=== PATIENT | female | born 1945 | race Caucasian/White ===

== ENCOUNTER → 2016-06-18 | Outpatient (REF) | payer MEDICARE, MEDICAID | LOC: M LAB REF 17:00 | PROVIDERS: ATTEND Internal Medicine Nephrology | DX: N39.0 Urinary tract infection, site not specified (principal) ==

== ENCOUNTER → 2016-06-27 | Outpatient (CLI) | payer MEDICARE ==
--- NOTE | 2016-06-27 12:06 | REP ---
Clinical: Chronic renal disease. Technique: Real time king scale ultrasound examination using curved array transducer. Findings: The kidneys are normal in reniform shape and demonstrate cortical thinning along with increased medullary sinus fat. Renovascular calcifications are identified. No hydronephrosis, nephrolithiasis, cystic or mass lesion identified. No perinephric fluid collection noted. Right kidney measures 10.0 x 4.7 x 5.0 cm. Left kidney measures 10.7 x 5.7 x 5.6 cm. Bladder is incompletely evaluated and grossly unremarkable as visualized. Impression: Findings consistent with chronic medical renal disease. No hydronephrosis. Signed by Yosef Laguna MD 06/27/2016 11:58 A
== END ==
LOC: M RAD 10:54
PROVIDERS: ATTEND Internal Medicine Nephrology
DX: N18.4 Chronic kidney disease, stage 4 (severe) (principal)

== ENCOUNTER → 2016-11-21 | Outpatient (CLI) | payer MEDICARE ==
--- NOTE | 2016-11-21 14:08 | REPMRS ---
Patient History The patient states she had a clinical breast exam in October 2016.Patient is postmenopausal and is nulliparous. Family history of unknown cancer in father at age 50 or over and breast cancer in maternal aunt at age 63. Digital Mammo Screening Bilat: November 21, 2016 - Exam #: [id number] Bilateral CC and MLO view(s) were taken. Technologist: Sarah Ignacio, Technologist Prior study comparison: November 22, 2015, bilateral digital mammo screening bilat performed at [facility]. October 26, 2014, digital bilateral screening mammo, performed at [facility]. FINDINGS: There are scattered fibroglandular densities. There has been no change in the appearance of the mammogram from the prior studies. There is a mild amount of residual fibroglandular tissue which is fairly symmetric. There is no interval development of dominant mass, architectural distortion, or clustered microcalcification suggestive of malignancy. ASSESSMENT: BI-RADS/ACR category 1 mammogram. Negative. Recommendation Routine screening mammogram in 1 year (for women over age 40). This mammogram was interpreted with the aid of an FDA-approved computer-aided dectection system. Electronically Signed By: Jose Angel Yap MD 11/21/16 1920
== END ==
LOC: M RAD 12:44
PROVIDERS: ATTEND Nurse Practitioner Adult Health
DX: Z12.31 Encounter for screening mammogram for malignant neoplasm of breast (principal); Z78.0 Asymptomatic menopausal state

== ENCOUNTER → 2017-02-07 | Outpatient (CLI) | payer MEDICARE ==
[2017-02-07 13:39] LABS: FREE T4 1.14 NG/DL (0.76-1.46)
== END ==
LOC: M LAB 11:46
PROVIDERS: ATTEND Nurse Practitioner Adult Health
DX: E11.8 Type 2 diabetes mellitus with unspecified complications (principal)

== ENCOUNTER → 2017-05-23 | Outpatient (CLI) | payer MEDICARE, MEDICAID ==
[2017-05-23 10:48] LABS: BASO # 0.1 10^3/uL (0.0-0.2); EOS # 0.2 10^3/uL (0.0-0.50); EOS % 2.6 % (0.0-3.0); HEMATOCRIT 38.9 % (36.0-47.0); HEMOGLOBIN 12.5 g/dl (12.0-16.0); IMMATURE GRANULOCYTE % 0.2 % (0-0); LYMPH # 3.1 10^3/uL (1.5-4.5); LYMPH % 36.9 % (24.0-44.0); MEAN CORPUSCULAR HEMOGLOBIN 29.1 pg (27.0-33.0); MEAN CORPUSCULAR HGB CONC 32.1 g/dl (32.0-36.5); MEAN CORPUSCULAR VOLUME 90.5 fl (80.0-96.0); MONO # 0.6 10^3/uL (0.0-0.8); MONO % 7.4 % (0.0-5.0); NEUTROPHILS # 4.3 10^3/uL (1.8-7.7); NEUTROPHILS % 51.9 % (36.0-66.0); PLATELET COUNT, AUTOMATED 220 10^3/uL (150-450); RED CELL DISTRIBUTION WIDTH 12.8 % (11.5-14.5); WHITE BLOOD COUNT 8.4 10^3/uL (4.0-10.0)
[2017-05-23 11:02] LABS: ESTIMATED AVERAGE GLUCOSE 146 MG/DL (60-110); HEMOGLOBIN A1c 6.7 %
[2017-05-23 11:25] LABS: ALBUMIN 3.7 GM/DL (3.2-5.2); ALBUMIN/GLOBULIN RATIO 1.19 (1.00-1.93); ALKALINE PHOSPHATASE 111 U/L (45-117); ALT/SGPT 30 U/L (12-78); ANION GAP 5 MEQ/L (8-16); AST/SGOT 23 U/L (7-37); BILIRUBIN,TOTAL 0.3 MG/DL (0.2-1.0); BLOOD UREA NITROGEN 27 MG/DL (7-18); CALCIUM LEVEL 9.2 MG/DL (8.8-10.2); CARBON DIOXIDE LEVEL 31 MEQ/L (21-32); CHLORIDE LEVEL 105 MEQ/L (98-107); CHOLESTEROL LEVEL 191 MG/DL (<200); CHOLESTEROL RISK RATIO 2.893 (<5); GLOMERULAR FILTRATION RATE 47.3 (>39); GLUCOSE, FASTING 79 MG/DL (83-110); HDL CHOLESTEROL 66 MG/DL (>40); LDL CHOLESTEROL 92.8 MG/DL (<100); NON-HDL-C 125 MG/DL; POTASSIUM SERUM 4.1 MEQ/L (3.5-5.1); SODIUM LEVEL 141 MEQ/L (136-145); TOTAL PROTEIN 6.8 GM/DL (6.4-8.2); TRIGLYCERIDES LEVEL 161 MG/DL (<150)
[2017-05-23 16:50] LABS: TOTAL 25(OH) VITAMIN D 95.1 NG/ML (30.0-100.0)
== END ==
LOC: M LAB 10:14
DX: E55.9 Vitamin D deficiency, unspecified (principal); E11.8 Type 2 diabetes mellitus with unspecified complications; E03.9 Hypothyroidism, unspecified; N18.2 Chronic kidney disease, stage 2 (mild); Z79.899 Other long term (current) drug therapy
CPT/HCPCS: 84443

== ENCOUNTER → 2017-08-21 | Outpatient (REF) | payer MEDICARE, MEDICAID ==
[2017-08-21 14:24] LABS: ESTIMATED AVERAGE GLUCOSE 143 MG/DL (60-110); HEMOGLOBIN A1c 6.6 %
[2017-08-21 14:26] LABS: VITAMIN B12 LEVEL 562 PG/ML
[2017-08-21 14:27] LABS: FOLATE > 24.0 NG/ML
[2017-08-21 14:32] LABS: FERRITIN 21 NG/ML (8-252); FREE T4 1.18 NG/DL (0.76-1.46); IRON (FE) 63 UG/DL (50-170); PERCENT SATURATION 16.6 % (13.2-45.0); RHEUMATOID FACTOR QUANT < 10.0 IU/ML (<15.0); TOTAL IRON BINDING CAPACITY 379 UG/DL (250-450)
[2017-08-21 14:42] LABS: ERYTHROCYTE SEDIMENTATION RATE 20 mm/hr (0-30)
[2017-08-24 14:56] LABS: VITAMIN B1 LEVEL WHOLE BLOOD 139.8 nmol/L (66.5-200.0); VITAMIN B6,PYRIDOXAL PHOSPHATE 17.2 ug/L (2.0-32.8)
[2017-08-26 14:13] LABS: ANTINUCLEAR ANTIBODIES DIRECT Negative (Negative); VITAMIN E(ALPHA TOCOPHEROL) 10.4 mg/L (9.0-29.0); VITAMIN E(GAMMA TOCOPHEROL) 2.1 mg/L (0.5-4.9)
== END ==
LOC: M LABNEURO 11:32
DX: G25.81 Restless legs syndrome (principal); R20.9 Unspecified disturbances of skin sensation; D64.9 Anemia, unspecified
CPT/HCPCS: 82746

== ENCOUNTER → 2017-12-26 | Outpatient (CLI) | payer MEDICARE, MEDICAID | LOC: M RAD 13:13 | DX: Z12.31 Encounter for screening mammogram for malignant neoplasm of breast (principal) | CPT/HCPCS: 77067 ==

== ENCOUNTER → 2018-03-05 | Outpatient (CLI) | payer MEDICARE, MEDICAID ==
[2018-03-05 15:53] LABS: BASO # 0.1 10^3/uL (0.0-0.2); BASO % 1.1 % (0.0-1.0); EOS # 0.1 10^3/uL (0.0-0.50); EOS % 1.8 % (0.0-3.0); HEMATOCRIT 40.6 % (36.0-47.0); HEMOGLOBIN 13.1 g/dl (12.0-15.5); IMMATURE GRANULOCYTE % 0.4 % (0-3.0); LYMPH # 2.2 10^3/uL (1.5-4.5); LYMPH % 27.7 % (24.0-44.0); MEAN CORPUSCULAR HEMOGLOBIN 29.8 pg (27.0-33.0); MEAN CORPUSCULAR HGB CONC 32.3 g/dl (32.0-36.5); MEAN CORPUSCULAR VOLUME 92.3 fl (80.0-96.0); MONO # 0.5 10^3/uL (0.0-0.8); MONO % 6.5 % (0.0-5.0); NEUTROPHILS # 4.9 10^3/uL (1.8-7.7); NEUTROPHILS % 62.5 % (36.0-66.0); PLATELET COUNT, AUTOMATED 223 10^3/uL (150-450); RED CELL DISTRIBUTION WIDTH 12.9 % (11.5-14.5); WHITE BLOOD COUNT 7.8 10^3/uL (4.0-10.0)
[2018-03-05 16:39] LABS: ALBUMIN 3.5 GM/DL (3.2-5.2); ALBUMIN/GLOBULIN RATIO 1.03 (1.00-1.93); ALKALINE PHOSPHATASE 108 U/L (45-117); ALT/SGPT 29 U/L (12-78); ANION GAP 10 MEQ/L (8-16); AST/SGOT 21 U/L (7-37); BILIRUBIN,TOTAL 0.3 MG/DL (0.2-1.0); BLOOD UREA NITROGEN 25 MG/DL (7-18); CARBON DIOXIDE LEVEL 28 MEQ/L (21-32); CHLORIDE LEVEL 105 MEQ/L (98-107); CHOLESTEROL LEVEL 193 MG/DL (<200); CHOLESTEROL RISK RATIO 2.969 (<5); CREATININE FOR GFR 1.32 MG/DL (0.55-1.30); GLOMERULAR FILTRATION RATE 42.4 (>39); GLUCOSE, FASTING 126 MG/DL (70-100); HDL CHOLESTEROL 65 MG/DL (>40); LDL CHOLESTEROL 116 MG/DL (<100); NON-HDL-C 128 MG/DL; POTASSIUM SERUM 4.4 MEQ/L (3.5-5.1); SODIUM LEVEL 143 MEQ/L (136-145); TOTAL PROTEIN 6.9 GM/DL (6.4-8.2); TRIGLYCERIDES LEVEL 62 MG/DL (<150)
[2018-03-05 16:45] LABS: ESTIMATED AVERAGE GLUCOSE 140 MG/DL (60-110); HEMOGLOBIN A1c 6.5 %
== END ==
LOC: M WHC 14:28
DX: E78.2 Mixed hyperlipidemia (principal); R53.83 Other fatigue; E11.9 Type 2 diabetes mellitus without complications; N18.9 Chronic kidney disease, unspecified; I12.9 Hypertensive chronic kidney disease with stage 1 through stage 4 chronic kidney disease, or unspecified chronic kidney disease; E03.9 Hypothyroidism, unspecified; Z13.9 Encounter for screening, unspecified; Z78.0 Asymptomatic menopausal state
CPT/HCPCS: 84443

== ENCOUNTER 2018-06-16 07:52 | Day surgery (SDC) | payer MEDICARE, MEDICAID ==
[~2018-06-16] VITALS: Ht 152.4 cm; Wt 98.0 kg
[~2018-06-16 07:52] MED LIST: ACETAMINOPHEN 325 MG TAB PO PRN; ASPI1TAB PO; ATOR40TA75 PO; BSS with VANC/TOB/EPI for EYE CASES IR ONE; BUSP15TA47 PO; COQ-100C2 PO; CYCLOPENTOLATE 2% OPHTH SOLN 2ML BTL OS ONE; GABA-845 PO; GLIP5TAB20 PO; HEALON DUET PRO(HEALON 10MG/ML 0.55ML & HEALON ENDOCOAT 30MG/ML 0.85ML) As Ordered ONE; JANU100T PO; LEVO100T5 PO; LIDOCAINE 1% SDV 5 ML VIAL As Ordered ONE; LIDOCAINE 3.5 % 1ML OPHTH TOPICAL GEL OU ONE; MOXIFLOXACIN IN BSS 0.25MG/0.25ML INTRACAMERAL INJ (OR EYE ONLY)(J2280) As Ordered ONE; MULT1TAB10 PO; OFLOXACIN 0.3 % (OCUFLOX) OPTH SOL 5ML OS ONE; PHENYLEPHRINE 2.5% OPHTH SOL 2ML OS ONE; PHENYLEPHRINE HCL 10 % OPHTH. SOL 5ML OS PRN; POVIDONE-IODINE 5% OPHTH PREP SOL 30ML As Ordered ONE; TRAZ10TA PO; TRIAMCINOLONE PRES FR 40 MG/ML 1ML(TRIESENCE)(OR EYE ONLY)(J3300 PER 1MG) As Ordered ONE; TROPICAMIDE 1% OPHTH SOLN 2ML OS ONE; XANA0.25 PO
[2018-06-16] MEDS ORDERED: fentaNYL 100 MCG/2 ML INJECTION (J3010) As Ordered ONE (08:39)
[2018-06-16] MEDS ORDERED: MIDAZOLAM INJ 2 MG/2 ML VIAL (J2250) As Ordered ONE (08:39)
[2018-06-16] MEDS ORDERED: ACETYLCHOLINE OPHTH SOLN 1% 2ML (MIOCHOL-E) As Ordered ONE (10:13)
[2018-06-16 10:25] VITALS: BP 111/63
[2018-06-16] MEDS ORDERED: AcetaZOLAMIDE 500 MG ER CAP As Ordered ONE (10:45)
[2018-06-16] MEDS ORDERED: AcetaZOLAMIDE 500 MG ER CAP PO ONE (11:00)
[2018-06-16] MEDS ORDERED: TRIMETHOBENZAMIDE 300 MG CAP PO PRN (11:00)
[2018-06-16] MEDS ORDERED: PERCOCET 5MG/325MG TAB PO PRN (11:00)
[2018-06-16] MEDS ORDERED: fentaNYL 100 MCG/2 ML INJECTION (J3010) IV PRN (11:00)
== END 2018-06-16 11:20 | disposition home or self-care (01) ==
LOC: M SDC 07:52
PROVIDERS: ATTEND Ophthalmology
DX: H25.9 Unspecified age-related cataract (principal); E11.9 Type 2 diabetes mellitus without complications; E78.5 Hyperlipidemia, unspecified; E03.9 Hypothyroidism, unspecified; F41.9 Anxiety disorder, unspecified; Z88.0 Allergy status to penicillin; Z79.82 Long term (current) use of aspirin; Z79.84 Long term (current) use of oral hypoglycemic drugs; Z79.899 Other long term (current) drug therapy
CPT/HCPCS: 66984; 92015; J2250; J2280; J3010; J3300; V2632

== ENCOUNTER → 2018-06-24 | Outpatient (CLI) | payer OTHER ==
[~2018-06-24] MED LIST changes: -ACETAMINOPHEN 325 MG TAB PO PRN; -BSS with VANC/TOB/EPI for EYE CASES IR ONE; -CYCLOPENTOLATE 2% OPHTH SOLN 2ML BTL OS ONE; -HEALON DUET PRO(HEALON 10MG/ML 0.55ML & HEALON ENDOCOAT 30MG/ML 0.85ML) As Ordered ONE; -LIDOCAINE 1% SDV 5 ML VIAL As Ordered ONE; -LIDOCAINE 3.5 % 1ML OPHTH TOPICAL GEL OU ONE; -MOXIFLOXACIN IN BSS 0.25MG/0.25ML INTRACAMERAL INJ (OR EYE ONLY)(J2280) As Ordered ONE; -OFLOXACIN 0.3 % (OCUFLOX) OPTH SOL 5ML OS ONE; -PHENYLEPHRINE 2.5% OPHTH SOL 2ML OS ONE; -PHENYLEPHRINE HCL 10 % OPHTH. SOL 5ML OS PRN; -POVIDONE-IODINE 5% OPHTH PREP SOL 30ML As Ordered ONE; -TRIAMCINOLONE PRES FR 40 MG/ML 1ML(TRIESENCE)(OR EYE ONLY)(J3300 PER 1MG) As Ordered ONE; -TROPICAMIDE 1% OPHTH SOLN 2ML OS ONE
[2018-06-24 11:29] LABS: BASO # 0.1 10^3/uL (0.0-0.2); BASO % 0.8 % (0.0-1.0); EOS # 0.2 10^3/uL (0.0-0.50); EOS % 2.4 % (0.0-3.0); HEMATOCRIT 40.4 % (36.0-47.0); HEMOGLOBIN 13.4 g/dl (12.0-15.5); LYMPH # 3.3 10^3/uL (1.5-4.5); LYMPH % 37.9 % (24.0-44.0); MEAN CORPUSCULAR HEMOGLOBIN 30.3 pg (27.0-33.0); MEAN CORPUSCULAR HGB CONC 33.2 g/dl (32.0-36.5); MEAN CORPUSCULAR VOLUME 91.4 fl (80.0-96.0); MONO # 0.6 10^3/uL (0.0-0.8); MONO % 6.4 % (0.0-5.0); NEUTROPHILS # 4.5 10^3/uL (1.8-7.7); NEUTROPHILS % 52.3 % (36.0-66.0); PLATELET COUNT, AUTOMATED 219 10^3/uL (150-450); RED BLOOD COUNT 4.42 10^6/uL (4.00-5.40); WHITE BLOOD COUNT 8.7 10^3/uL (4.0-10.0)
[2018-06-24 12:17] LABS: ALBUMIN 3.8 GM/DL (3.2-5.2); BILIRUBIN,TOTAL 0.3 MG/DL (0.2-1.0); CALCIUM LEVEL 9.2 MG/DL (8.8-10.2); CHOLESTEROL RISK RATIO 3.272 (<5); CREATININE FOR GFR 1.22 MG/DL (0.55-1.30); FREE T4 1.11 NG/DL (0.76-1.46); GLOMERULAR FILTRATION RATE 46.3 (>39); POTASSIUM SERUM 4.5 MEQ/L (3.5-5.1); THYROID STIMULATING HORMONE 5.13 uIU/ML (0.358-3.740); TOTAL 25(OH) VITAMIN D 45.5 NG/ML (30.0-100.0)
[2018-06-24 13:59] LABS: HEMOGLOBIN A1c 7.4 %
== END ==
LOC: M LAB 10:27
PROVIDERS: ATTEND Physician Assistant Medical
DX: E78.2 Mixed hyperlipidemia (principal); I10 Essential (primary) hypertension; E55.9 Vitamin D deficiency, unspecified

== ENCOUNTER 2018-07-06 06:56 | Day surgery (SDC) | payer MEDICARE, MEDICAID ==
[~2018-07-06] VITALS: Ht 162.6 cm; Wt 95.6 kg
[~2018-07-06 06:56] MED LIST changes: +ACETAMINOPHEN 325 MG TAB PO PRN; +HEALON DUET PRO(HEALON 10MG/ML 0.55ML & HEALON ENDOCOAT 30MG/ML 0.85ML) As Ordered ONE; +LIDOCAINE 1% SDV 5 ML VIAL As Ordered ONE; +MOXIFLOXACIN IN BSS 0.25MG/0.25ML INTRACAMERAL INJ (OR EYE ONLY)(J2280) As Ordered ONE; +POVIDONE-IODINE 5% OPHTH PREP SOL 30ML As Ordered ONE; +TRIAMCINOLONE PRES FR 40 MG/ML 1ML(TRIESENCE)(OR EYE ONLY)(J3300 PER 1MG) As Ordered ONE
[2018-07-06] MEDS ORDERED: CYCLOPENTOLATE 2% OPHTH SOLN 2ML BTL OD ONE (07:00)
[2018-07-06] MEDS ORDERED: LIDOCAINE 3.5 % 1ML OPHTH TOPICAL GEL OU ONE (07:00)
[2018-07-06] MEDS ORDERED: PHENYLEPHRINE HCL 10 % OPHTH. SOL 5ML OD PRN (07:00)
[2018-07-06] MEDS ORDERED: OFLOXACIN 0.3 % (OCUFLOX) OPTH SOL 5ML OD ONE (07:00)
[2018-07-06] MEDS ORDERED: PHENYLEPHRINE 2.5% OPHTH SOL 2ML OD ONE (07:00)
[2018-07-06] MEDS ORDERED: BSS with VANC/TOB/EPI for EYE CASES IR ONE (07:00)
[2018-07-06] MEDS ORDERED: TROPICAMIDE 1% OPHTH SOLN 2ML OD ONE (07:00)
[2018-07-06] MEDS ORDERED: ACETYLCHOLINE OPHTH SOLN 1% 2ML (MIOCHOL-E) As Ordered ONE (08:02)
[2018-07-06] MEDS ORDERED: LIDOCAINE 2% W/EPIN INJ 20ML **PRES FREE As Ordered ONE (08:03)
[2018-07-06] MEDS ORDERED: MIDAZOLAM INJ 2 MG/2 ML VIAL (J2250) As Ordered ONE (09:16)
[2018-07-06] MEDS ORDERED: fentaNYL 100 MCG/2 ML INJECTION (J3010) As Ordered ONE (09:16)
[2018-07-06] MEDS ORDERED: TRIMETHOBENZAMIDE 300 MG CAP PO PRN (10:00)
[2018-07-06] MEDS ORDERED: AcetaZOLAMIDE 500 MG ER CAP PO ONE (10:00)
[2018-07-06 10:10] VITALS: BP 115/60
== END 2018-07-06 10:15 | disposition home or self-care (01) ==
LOC: M SDC 06:56
PROVIDERS: ATTEND Ophthalmology
DX: H26.9 Unspecified cataract (principal); E11.9 Type 2 diabetes mellitus without complications; E78.5 Hyperlipidemia, unspecified; E03.9 Hypothyroidism, unspecified; F41.9 Anxiety disorder, unspecified; G47.30 Sleep apnea, unspecified; Z79.82 Long term (current) use of aspirin; Z79.899 Other long term (current) drug therapy
CPT/HCPCS: 66984; 92015; J2250; J2280; J3010; J3300; V2632

== ENCOUNTER → 2018-10-07 | Outpatient (CLI) | payer MEDICARE, MEDICAID ==
[~2018-10-07] MED LIST changes: -ACETAMINOPHEN 325 MG TAB PO PRN; -ASPI1TAB PO; +ASPI81TA26 PO; -HEALON DUET PRO(HEALON 10MG/ML 0.55ML & HEALON ENDOCOAT 30MG/ML 0.85ML) As Ordered ONE; -LIDOCAINE 1% SDV 5 ML VIAL As Ordered ONE; -MOXIFLOXACIN IN BSS 0.25MG/0.25ML INTRACAMERAL INJ (OR EYE ONLY)(J2280) As Ordered ONE; -POVIDONE-IODINE 5% OPHTH PREP SOL 30ML As Ordered ONE; -TRIAMCINOLONE PRES FR 40 MG/ML 1ML(TRIESENCE)(OR EYE ONLY)(J3300 PER 1MG) As Ordered ONE
[2018-10-07 13:06] LABS: BASO # 0.1 10^3/uL (0.0-0.2); BASO % 0.9 % (0.0-1.0); EOS # 0.2 10^3/uL (0.0-0.50); EOS % 2.1 % (0.0-3.0); HEMATOCRIT 41.6 % (36.0-47.0); HEMOGLOBIN 13.3 g/dl (12.0-15.5); LYMPH # 3.2 10^3/uL (1.5-4.5); LYMPH % 37.7 % (24.0-44.0); MEAN CORPUSCULAR HEMOGLOBIN 29.8 pg (27.0-33.0); MEAN CORPUSCULAR VOLUME 93.3 fl (80.0-96.0); MONO # 0.6 10^3/uL (0.0-0.8); MONO % 7.2 % (0.0-5.0); NEUTROPHILS # 4.4 10^3/uL (1.8-7.7); NEUTROPHILS % 51.7 % (36.0-66.0); PLATELET COUNT, AUTOMATED 217 10^3/uL (150-450); RED BLOOD COUNT 4.46 10^6/uL (4.00-5.40); WHITE BLOOD COUNT 8.4 10^3/uL (4.0-10.0)
[2018-10-07 13:17] LABS: ALBUMIN 3.7 GM/DL (3.2-5.2); BILIRUBIN,TOTAL 0.5 MG/DL (0.2-1.0); CALCIUM LEVEL 9.8 MG/DL (8.8-10.2); CREATININE FOR GFR 1.3 MG/DL (0.55-1.30); FREE T4 1.29 NG/DL (0.76-1.46); POTASSIUM SERUM 5.1 MEQ/L (3.5-5.1); THYROID STIMULATING HORMONE 1.24 uIU/ML (0.358-3.740); TOTAL PROTEIN 6.9 GM/DL (6.4-8.2)
[2018-10-07 13:49] LABS: HEMOGLOBIN A1c 7.6 %
== END ==
LOC: M WUC 08:31
PROVIDERS: ATTEND Physician Assistant Medical
DX: R53.83 Other fatigue (principal); Z79.899 Other long term (current) drug therapy

== ENCOUNTER → 2018-12-08 | Outpatient (REF) | payer MEDICARE, MEDICAID | LOC: M SFHCWAGY 15:01 | PROVIDERS: ATTEND Nurse Practitioner Family | DX: Z12.4 Encounter for screening for malignant neoplasm of cervix (principal); N95.8 Other specified menopausal and perimenopausal disorders ==

== ENCOUNTER → 2018-12-08 | Outpatient (CLI) | payer MEDICARE, MEDICAID ==
--- NOTE | 2018-12-08 15:56 | REPMRS ---
Patient History The patient states she had a clinical breast exam in 11/2018. Patient is postmenopausal and is nulliparous. Family history of prostate cancer at age 50 or over in father, breast cancer at age 63 in maternal aunt. No Hormone Replacement Therapy Digital Woman Screen Mammo: December 08, 2018 - Exam #: [id number] Bilateral CC and MLO view(s) were taken. Technologist: Nuvia Kate, Technologist Prior study comparison: December 26, 2017, bilateral digital mammo screening bilat, performed at [facility]. November 21, 2016, bilateral digital mammo screening bilat, performed at [facility]. November 22, 2015, bilateral digital mammo screening bilat, performed at [facility]. FINDINGS: There are scattered fibroglandular densities. A metallic needle biopsy marker clip is again noted in the upper outer quadrant on the left. There has been no change in the appearance of the mammogram from the prior studies. There is a mild amount of scattered fibroglandular density which is fairly symmetric. There is no interval development of dominant mass, architectural distortion, or grouped microcalcification suggestive of malignancy. 3-D tomosynthesis shows no additional findings. Assessment: BI-RADS/ACR category 2 mammogram. Benign Findings. Recommendation Routine screening mammogram of both breasts in 1 year (for women over age 40). This patient's Lifetime Breast Cancer Risk is estimated at 8.1 %. This mammogram was interpreted with the aid of an FDA-approved computer-aided dectection system. Electronically Signed By: Michele Stewart MD 12/08/18 3022
== END ==
LOC: M WHC 14:26
PROVIDERS: ATTEND Nurse Practitioner Family
DX: Z01.419 Encounter for gynecological examination (general) (routine) without abnormal findings (principal); Z12.31 Encounter for screening mammogram for malignant neoplasm of breast; Z78.0 Asymptomatic menopausal state; Z80.42 Family history of malignant neoplasm of prostate
CPT/HCPCS: 77063; 77067; G0101; G0123

== ENCOUNTER → 2018-12-21 | Outpatient (CLI) | payer MEDICARE, MEDICAID ==
--- NOTE | 2018-12-21 14:08 | REP ---
PELVIC SONOGRAPHY: HISTORY: Mass in the uterus. No comparison imaging available. The patient reports an MRI of the hips at another facility showed uterine mass. FINDINGS: Transabdominal and endovaginal scanning are performed. Uterine dimensions of 5.1 x 4.2 x 6.0 cm. Endometrial echo 0.4 cm thick. There is a hypoechoic lesion in the anterior aspect of the lower uterine segment consistent with a fibroid. This measures 4.0 x 2.7 x 3.4 cm. Visualized bladder buckley are smooth. Normal ovaries are seen bilaterally. Right ovary dimensions are 1.9 x 1.0 x 1.7 cm. The left ovary measures 1.90 0.8 x 2.0 cm. IMPRESSION: 4.0 cm lower uterine segment fibroid. Otherwise negative pelvic sonography.
== END ==
LOC: M WHC 10:05
PROVIDERS: ATTEND Nurse Practitioner Family
DX: D25.9 Leiomyoma of uterus, unspecified (principal)

== ENCOUNTER → 2019-01-22 | Outpatient (REF) | payer MEDICARE, MEDICAID ==
[2019-01-22 15:58] LABS: BASO # 0.1 10^3/uL (0.0-0.2); BASO % 0.9 % (0.0-1.0); EOS # 0.2 10^3/uL (0.0-0.5); HEMATOCRIT 40.2 % (36.0-47.0); LYMPH # 3.4 10^3/uL (1.5-5.0); LYMPH % 39.4 % (24.0-44.0); MEAN CORPUSCULAR HGB CONC 32.3 g/dl (32.0-36.5); MEAN CORPUSCULAR VOLUME 89.7 fl (80.0-96.0); MONO # 0.7 10^3/uL (0.0-0.8); MONO % 7.8 % (0.0-5.0); NEUTROPHILS # 4.2 10^3/uL (1.5-8.5); NEUTROPHILS % 49.7 % (36.0-66.0); PLATELET COUNT, AUTOMATED 202 10^3/uL (150-450); RED BLOOD COUNT 4.48 10^6/uL (4.00-5.40); WHITE BLOOD COUNT 8.5 10^3/uL (4.0-10.0)
[2019-01-22 16:18] LABS: HEMOGLOBIN A1c 6.9 %
[2019-01-22 16:32] LABS: ALBUMIN 3.6 GM/DL (3.2-5.2); BILIRUBIN,TOTAL 0.5 MG/DL (0.2-1.0); CALCIUM LEVEL 9.5 MG/DL (8.8-10.2); CHOLESTEROL RISK RATIO 2.408 (<5); CREATININE FOR GFR 1.36 MG/DL (0.55-1.30); FREE T4 1.5 NG/DL (0.76-1.46); GLOMERULAR FILTRATION RATE 40.8 (>39); POTASSIUM SERUM 3.5 MEQ/L (3.5-5.1); THYROID STIMULATING HORMONE 0.074 uIU/ML (0.358-3.740); TOTAL PROTEIN 6.5 GM/DL (6.4-8.2)
== END ==
LOC: M LABDRAW1 14:02
PROVIDERS: ATTEND Physician Assistant Medical
DX: R53.83 Other fatigue (principal); I10 Essential (primary) hypertension; E11.9 Type 2 diabetes mellitus without complications; E78.2 Mixed hyperlipidemia; N18.9 Chronic kidney disease, unspecified

== ENCOUNTER → 2019-06-07 | Outpatient (CLI) | payer MEDICARE, MEDICAID ==
[~2019-06-07] MED LIST changes: -TRAZ10TA PO; +TRAZ1TAB12 PO
[2019-06-07 14:25] LABS: BASO # 0.1 10^3/uL (0.0-0.2); BASO % 0.9 % (0.0-1.0); EOS # 0.3 10^3/uL (0.0-0.5); HEMATOCRIT 45.2 % (36.0-47.0); HEMOGLOBIN 14.2 g/dl (12.0-15.5); LYMPH # 3.1 10^3/uL (1.5-5.0); LYMPH % 33.3 % (24.0-44.0); MEAN CORPUSCULAR HEMOGLOBIN 29.1 pg (27.0-33.0); MEAN CORPUSCULAR HGB CONC 31.4 g/dl (32.0-36.5); MEAN CORPUSCULAR VOLUME 92.6 fl (80.0-96.0); MONO # 0.7 10^3/uL (0.0-0.8); MONO % 6.9 % (0.0-5.0); NEUTROPHILS # 5.2 10^3/uL (1.5-8.5); NEUTROPHILS % 55.5 % (36.0-66.0); PLATELET COUNT, AUTOMATED 219 10^3/uL (150-450); RED BLOOD COUNT 4.88 10^6/uL (4.00-5.40); WHITE BLOOD COUNT 9.4 10^3/uL (4.0-10.0)
[2019-06-07 14:39] LABS: ALBUMIN 3.7 GM/DL (3.2-5.2); BILIRUBIN,TOTAL 0.6 MG/DL (0.2-1.0); CALCIUM LEVEL 9.6 MG/DL (8.8-10.2); CHOLESTEROL RISK RATIO 3.483 (<5); CREATININE FOR GFR 1.26 MG/DL (0.55-1.30); FREE T4 1.32 NG/DL (0.76-1.46); GLOMERULAR FILTRATION RATE 44.4 (>39); POTASSIUM SERUM 3.8 MEQ/L (3.5-5.1); THYROID STIMULATING HORMONE 0.312 uIU/ML (0.358-3.740); TOTAL PROTEIN 7.1 GM/DL (6.4-8.2)
== END ==
LOC: M LAB 12:27
PROVIDERS: ATTEND Physician Assistant Medical
DX: R53.83 Other fatigue (principal); I10 Essential (primary) hypertension; E03.9 Hypothyroidism, unspecified; E78.2 Mixed hyperlipidemia; E11.9 Type 2 diabetes mellitus without complications

== ENCOUNTER → 2019-10-22 | Outpatient (CLI) | payer MEDICARE, MEDICAID ==
[2019-10-22 13:29] LABS: BASO # 0.1 10^3/uL (0.0-0.2); BASO % 0.9 % (0.0-1.0); EOS # 0.3 10^3/uL (0.0-0.5); EOS % 2.4 % (0.0-3.0); HEMATOCRIT 44.6 % (36.0-47.0); HEMOGLOBIN 14.5 g/dl (12.0-15.5); LYMPH # 3.5 10^3/uL (1.5-5.0); LYMPH % 33.3 % (24.0-44.0); MEAN CORPUSCULAR HEMOGLOBIN 29.3 pg (27.0-33.0); MEAN CORPUSCULAR HGB CONC 32.5 g/dl (32.0-36.5); MEAN CORPUSCULAR VOLUME 90.1 fl (80.0-96.0); MONO # 0.8 10^3/uL (0.0-0.8); MONO % 7.5 % (0.0-5.0); NEUTROPHILS # 5.9 10^3/uL (1.5-8.5); NEUTROPHILS % 55.6 % (36.0-66.0); PLATELET COUNT, AUTOMATED 214 10^3/uL (150-450); RED BLOOD COUNT 4.95 10^6/uL (4.00-5.40); WHITE BLOOD COUNT 10.6 10^3/uL (4.0-10.0)
[2019-10-22 13:54] LABS: HEMOGLOBIN A1c 7.1 %
[2019-10-22 14:01] LABS: ALBUMIN 3.6 GM/DL (3.2-5.2); BILIRUBIN,TOTAL 0.4 MG/DL (0.2-1.0); CALCIUM LEVEL 9.9 MG/DL (8.8-10.2); CHOLESTEROL RISK RATIO 3.327 (<5); CREATININE FOR GFR 1.36 MG/DL (0.55-1.30); FREE T4 1.09 NG/DL (0.76-1.46); GLOMERULAR FILTRATION RATE 40.7 (>39); THYROID STIMULATING HORMONE 0.284 uIU/ML (0.358-3.740); TOTAL PROTEIN 7.1 GM/DL (6.4-8.2)
[2019-10-22 14:04] LABS: TOTAL 25(OH) VITAMIN D 76.7 NG/ML (30.0-100.0)
== END ==
LOC: M LAB 13:06
PROVIDERS: ATTEND Physician Assistant Medical
DX: R53.83 Other fatigue (principal); E78.00 Pure hypercholesterolemia, unspecified

== ENCOUNTER → 2019-12-31 | Outpatient (CLI) | payer MEDICARE, MEDICAID ==
[~2019-12-31] MED LIST changes: +ACET-683; +ATOR80TA59; +COQ-100C5 PO; +FURO20TA2 PO; +GABA-1171; +GLIP10TA6; +LEVO112T2; +MAGN500T2; +MULTCAP PO; +QUET1TAB7; +QUET5TAB PO; +RISP0.5T3; +VITA100T39 PO; +VITA50005
== END ==
LOC: M LABSMTC 09:58
PROVIDERS: ATTEND Anesthesiology
DX: Z01.812 Encounter for preprocedural laboratory examination (principal); Z20.828 Contact with and (suspected) exposure to other viral communicable diseases

== ENCOUNTER → 2020-02-11 | Outpatient (CLI) | payer MEDICARE ==
[~2020-02-11] MED LIST changes: +RISP-7; -RISP0.5T3
--- NOTE | 2020-02-11 16:09 | REPMRS ---
Patient History The patient states she had a clinical breast exam in 2019. Family history of prostate cancer at age 50 or over in father, breast cancer at age 63 in maternal aunt. No Hormone Replacement Therapy 3D TOMOSYNTHESIS WAS PERFORMED. The Ada Lawrence lifetime risk for breast cancer is 7.6%. Volpara density a. Digital Woman Screen Mammo: February 11, 2020 - Exam #: [id number] Bilateral CC and MLO view(s) were taken. Technologist: Sarah Ignacio, Technologist Prior study comparison: December 08, 2018, bilateral digital woman screen mammo performed at [facility]. December 26, 2017, bilateral digital mammo screening bilat, performed at [facility]. FINDINGS: There are scattered fibroglandular densities. There has been no change in the appearance of the mammogram from the prior studies. There is a mild amount of residual fibroglandular tissue which is fairly symmetric. There is no interval development of dominant mass, architectural distortion, or clustered microcalcification suggestive of malignancy. Assessment: BI-RADS/ACR category 1 mammogram. Negative Mammogram. Recommendation Routine screening mammogram in 1 year (for women over age 40). This mammogram was interpreted with the aid of an FDA-approved computer-aided dectection system. Electronically Signed By: Jose Angel Yap MD 02/11/20 9828
== END ==
LOC: M WHC 13:46
PROVIDERS: ATTEND Nurse Practitioner Family
DX: Z12.31 Encounter for screening mammogram for malignant neoplasm of breast (principal); Z80.42 Family history of malignant neoplasm of prostate
CPT/HCPCS: 77063; 77067; G0463

== ENCOUNTER → 2020-03-01 | Outpatient (CLI) | payer MEDICARE, MEDICAID ==
[~2020-03-01] MED LIST changes: -RISP-7; +RISP0.5T3
--- NOTE | 2020-03-01 17:29 | REP ---
INDICATION: R10.2 PELVIC PAIN. COMPARISON: 12/21/2018 TECHNIQUE: Transabdominal and transvaginal scanning were performed. FINDINGS: Uterine dimensions are normal at 7.6 x 4.9 x 6.4 cm. Endometrial echo is 3 mm thick and centrally placed. There is a tiny amount of endometrial fluid. No free fluid is seen in the cul-de-sac. The bladder measures 1.7 x 3.7 x 4.4 cm. Right lower uterine segment fibroid is visualized measuring 3.2 x 2.6 by 2.8 cm. Lobulated cystic structure in the region of the cervix appears to contain a thin septation and appears unchanged compared to the prior study measuring 1.1 x 0.7 x 1.0 cm, likely a nabothian cyst. The right ovary has dimensions of 1.8 x 1.2 x 0.9 cm. Blood flow is seen in the right ovary with Doppler evaluation. The left ovary dimensions are normal as well at 1.5 x 0.7 x 2.0 cm. Blood flow seen in the left ovary with Doppler evaluation. IMPRESSION: Tiny amount of endometrial fluid. Lower uterine segment fibroid, maximum diameter 3.2 cm. Lobulated nabothian cyst in the region of the cervix is unchanged since the prior study. No adnexal mass or free fluid. <Electronically signed by Jose Angel Yap > 03/01/20 [id number]
== END ==
LOC: M WHC 14:46
PROVIDERS: ATTEND Nurse Practitioner Family
DX: D25.9 Leiomyoma of uterus, unspecified (principal); N88.8 Other specified noninflammatory disorders of cervix uteri

== ENCOUNTER → 2020-03-10 | Outpatient (CLI) | payer MEDICARE, MEDICAID | LOC: M LABSMTC 12:08 | PROVIDERS: ATTEND Anesthesiology | DX: Z01.812 Encounter for preprocedural laboratory examination (principal); Z20.828 Contact with and (suspected) exposure to other viral communicable diseases | CPT/HCPCS: C9803; U0003 ==

== ENCOUNTER 2020-03-15 10:36 | Day surgery (SDC) | payer MEDICARE, MEDICAID ==
[~2020-03-15] VITALS: Ht 162.6 cm; Wt 93.0 kg
[~2020-03-15 10:36] MED LIST changes: +LIDOCAINE 2% 100MG/5ML SDV (FOR ANES.) As Ordered ONE; +NS 1,000 ML IV ONE; +propofoL 200 MG/20 ML VIAL As Ordered ONE
--- NOTE | 2020-03-15 12:57 | ROOR ---
Patient Name: Shalini Sosa Procedure Date: 03/15/2020 12:30 PM Date of : 1945 Age: 74 Room: [facility] Gender: Female Note Status: Finalized Procedure: Colonoscopy Indications: Screening for colorectal malignant neoplasm Providers: Faisal Johnson MD Referring MD: Jet Lopez Requesting Provider: Medicines: Monitored Anesthesia Care Complications: No immediate complications. Procedure: Pre-Anesthesia Assessment: - Prior to the procedure, a History and Physical was performed, and patient medications and allergies were reviewed. The patient is competent. The risks and benefits of the procedure and the sedation options and risks were discussed with the patient. All questions were answered and informed consent was obtained. Patient identification and proposed procedure were verified by the physician, the nurse and the technical services consultant in the endoscopy suite. Mental Status Examination: alert and oriented. Airway Examination: normal oropharyngeal airway and neck mobility. Respiratory Examination: clear to auscultation. CV Examination: normal. Prophylactic Antibiotics: The patient does not require prophylactic antibiotics. Prior Anticoagulants: The patient has taken no previous anticoagulant or antiplatelet agents. ASA Grade Assessment: II - A patient with mild systemic disease. After reviewing the risks and benefits, the patient was deemed in satisfactory condition to undergo the procedure. The anesthesia plan was to use monitored anesthesia care (MAC). Immediately prior to administration of medications, the patient was re-assessed for adequacy to receive sedatives. The heart rate, respiratory rate, oxygen saturations, blood pressure, adequacy of pulmonary ventilation, and response to care were monitored throughout the procedure. The physical status of the patient was re-assessed after the procedure. The Colonoscope was introduced through the anus and advanced to the ileocolonic anastomosis. The colonoscopy was performed without difficulty. The patient tolerated the procedure well. The quality of the bowel preparation was good. Findings: The perianal and digital rectal examinations were normal. A few small-mouthed diverticula were found in the sigmoid colon. The entire examined colon appeared normal. No additional abnormalities were found on retroflexion. Impression: - Diverticulosis in the sigmoid colon. - The entire examined colon is normal. - No specimens collected. Recommendation: - Discharge patient to home (ambulatory). - Repeat colonoscopy in 10 years for screening purposes. Attending Participation: I personally performed the entire procedure. Faisal Johnson MD Faisal Johnson MD 03/15/2020 12:56:55 PM Electronically signed by Faisal Johnson MD Number of Addenda: 0 Note Initiated On: 03/15/2020 12:30 PM Estimated Blood Loss: Estimated blood loss: none.
[2020-03-15 13:20] VITALS: BP 125/69
== END 2020-03-15 13:43 | disposition home or self-care (01) ==
LOC: M OPP 10:36
PROVIDERS: ATTEND Surgery
DX: Z12.11 Encounter for screening for malignant neoplasm of colon (principal); K57.30 Diverticulosis of large intestine without perforation or abscess without bleeding; D25.9 Leiomyoma of uterus, unspecified; N18.30 Chronic kidney disease, stage 3 unspecified; Z79.82 Long term (current) use of aspirin; Z79.899 Other long term (current) drug therapy

== ENCOUNTER → 2020-05-18 | Outpatient (CLI) | payer MEDICARE, MEDICAID ==
[~2020-05-18] MED LIST changes: -LIDOCAINE 2% 100MG/5ML SDV (FOR ANES.) As Ordered ONE; -NS 1,000 ML IV ONE; +RISP-7; -RISP0.5T3; -propofoL 200 MG/20 ML VIAL As Ordered ONE
--- NOTE | 2020-05-18 17:11 | REP ---
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 TECHNIQUE: Coronal T1, STIR through the pelvis, axial, coronal, sagittal T2 fat sat left hip. FINDINGS: The visualized osseous structures demonstrate normal bone marrow signal. There is no bone marrow edema or occult fracture. There is no evidence of avascular necrosis. There is a tear of the anterior labrum, as well as the contiguous anterior aspect of superior labrum. There is no paralabral cyst. Mild ill-defined increased signal on T2 weighted images is visualized along the greater trochanters bilaterally compatible with mild bilateral greater trochanteric tendonobursitis.. There is no joint effusion. The visualized intrapelvic structures are unremarkable. Fibroid uterus is partially visualized. IMPRESSION: There is tear of the anterior labrum, as well as the contiguous anterior aspect of the superior labrum. There is mild bilateral greater trochanteric tendonobursitis. <Electronically signed by Jose Angel Yap > 05/18/20 3002
== END ==
LOC: M RAD 15:44
PROVIDERS: ATTEND Physician Assistant Surgical
DX: S73.191A Other sprain of right hip, initial encounter (principal); M70.61 Trochanteric bursitis, right hip; M70.62 Trochanteric bursitis, left hip; X58.XXXA Exposure to other specified factors, initial encounter; Y92.9 Unspecified place or not applicable; Y99.9 Unspecified external cause status; M16.0 Bilateral primary osteoarthritis of hip; R53.83 Other fatigue; I10 Essential (primary) hypertension; E78.2 Mixed hyperlipidemia; E11.9 Type 2 diabetes mellitus without complications; E03.9 Hypothyroidism, unspecified

== ENCOUNTER → 2020-05-18 | Outpatient (CLI) | payer MEDICARE, MEDICAID ==
[2020-05-18 17:25] LABS: BASO # 0.1 10^3/uL (0.0-0.2); BASO % 0.9 % (0.0-1.0); EOS # 0.2 10^3/uL (0.0-0.5); EOS % 2.7 % (0.0-3.0); HEMATOCRIT 41.7 % (36.0-47.0); HEMOGLOBIN 13.4 g/dl (12.0-15.5); LYMPH # 3.8 10^3/uL (1.5-5.0); LYMPH % 44.5 % (24.0-44.0); MEAN CORPUSCULAR HEMOGLOBIN 29.5 pg (27.0-33.0); MEAN CORPUSCULAR HGB CONC 32.1 g/dl (32.0-36.5); MEAN CORPUSCULAR VOLUME 91.6 fl (80.0-96.0); MONO # 0.6 10^3/uL (0.0-0.8); MONO % 6.6 % (0.0-5.0); NEUTROPHILS # 3.9 10^3/uL (1.5-8.5); PLATELET COUNT, AUTOMATED 205 10^3/uL (150-450); RED BLOOD COUNT 4.55 10^6/uL (4.00-5.40); WHITE BLOOD COUNT 8.6 10^3/uL (4.0-10.0)
[2020-05-18 18:11] LABS: ALBUMIN 3.7 GM/DL (3.2-5.2); BILIRUBIN,TOTAL 0.4 MG/DL (0.2-1.0); CALCIUM LEVEL 9.5 MG/DL (8.8-10.2); CHOLESTEROL RISK RATIO 3.206 (<5); CREATININE FOR GFR 1.42 MG/DL (0.55-1.30); FREE T4 1.11 NG/DL (0.76-1.46); GLOMERULAR FILTRATION RATE 38.6 (>39); POTASSIUM SERUM 4.1 MEQ/L (3.5-5.1); THYROID STIMULATING HORMONE 2.3 uIU/ML (0.358-3.740); TOTAL PROTEIN 6.5 GM/DL (6.4-8.2)
== END ==
LOC: M PLALAB 14:35
PROVIDERS: ATTEND Physician Assistant Medical
DX: R53.83 Other fatigue (principal); I10 Essential (primary) hypertension; E78.2 Mixed hyperlipidemia; E11.9 Type 2 diabetes mellitus without complications; E03.9 Hypothyroidism, unspecified

== ENCOUNTER → 2020-06-13 | Outpatient (CLI) | payer MEDICARE, MEDICAID ==
[~2020-06-13] MED LIST changes: +ISOVUE-300 61% 50ML VIAL As Ordered ONE; +ISOVUE-M 300 61% 15ML VIAL As Ordered ONE; +LIDOCAINE 1% MDV 20ML VIAL As Ordered ONE; +TRIAMCINOLONE ACETONIDE SUSP 40 MG/ML VIAL (J3301) As Ordered ONE
--- NOTE | 2020-06-13 17:00 | REP ---
INDICATION: OSTEOARTHRITIS RIGHT HIP. COMPARISON: None. TECHNIQUE: The procedure was performed under the direct supervision of Dr. Stewart. The benefits and risks including but not limited to pain infection and bleeding and anaphylaxis were explained to the patient and informed consent was obtained. The right femoral neck was localized using fluoroscopic guidance. The skin was prepped and draped in a sterile fashion. 1% lidocaine was used as a local anesthetic. Using fluoroscopic guidance a 22-gauge spinal needle was inserted and advanced to the femoral neck. 0.5 ml of Conray 43 was injected to verify placement. 6 mL of a solution containing 5 mL of 1% Xylocaine and 1 ml of Kenalog 40 mg was injected. The needle was then removed. The patient tolerated the procedure well and there were no immediate complications. Less than 6 seconds seconds of fluoro time was utilized for this procedure. FINDINGS: None IMPRESSION: Fluoro guidance for right hip injection. <Electronically signed by Rigoberto Iglesias > 06/13/20 1617 <Electronically signed by Michele Stewart > 06/13/20 4623
== END ==
LOC: M RADPRO 12:06
PROVIDERS: ATTEND Physician Assistant Surgical
DX: M16.11 Unilateral primary osteoarthritis, right hip (principal)
CPT/HCPCS: 20610; 77002; J3301; Q9967

== ENCOUNTER 2020-08-11 15:55 | Emergency (ER) | payer MEDICARE, MEDICAID ==
[~2020-08-11] VITALS: Ht 160 cm; Wt 88.2 kg
[~2020-08-11 15:55] MED LIST changes: +GABA-283 PO; -GABA-845 PO; -ISOVUE-300 61% 50ML VIAL As Ordered ONE; -ISOVUE-M 300 61% 15ML VIAL As Ordered ONE; -LIDOCAINE 1% MDV 20ML VIAL As Ordered ONE; -QUET1TAB7; +QUET25TA3; +QUET50TA3 PO; -QUET5TAB PO; -TRIAMCINOLONE ACETONIDE SUSP 40 MG/ML VIAL (J3301) As Ordered ONE
--- NOTE | 2020-08-11 16:45 | REP ---
INDICATION: r/o cva. COMPARISON: None. TECHNIQUE: CT BRAIN PERFORMED IN THE AXIAL PLANE. CORONAL RECONSTRUCTION IMAGES ARE PERFORMED. FINDINGS: THE VENTRICLES ARE NORMAL IN SIZE AND POSITION. VENTRICULAR SIZE AND ABSENCE OF ANY SIGNIFICANT ATROPHY ARE NOTED. BASAL GANGLIA ARE SYMMETRIC AND NORMAL. THERE IS SOME MILD HETEROGENEOUS LOW-ATTENUATION WHITE MATTER CHANGE THAT MIGHT REFLECT SMALL-VESSEL ISCHEMIC DISEASE. THERE IS NO MIDLINE SHIFT OR MASS EFFECT. MIRELES-WHITE DIFFERENTIATION IS WELL MAINTAINED. THERE IS NO ACUTE INFARCT, INTRACRANIAL HEMORRHAGE OR EXTRA-AXIAL FLUID COLLECTION. NO MASS OR MASS EFFECT. THE POSTERIOR FOSSA WAS UNREMARKABLE. THE BASAL CISTERNS ARE INTACT. BONE WINDOW EXAMINATION IS UNREMARKABLE. VISUALIZED MASTOID AIR CELLS AND PARANASAL SINUSES ARE CLEAR. IMPRESSION: NEGATIVE NONCONTRAST CT BRAIN. <Electronically signed by Sushil Cuevas > 08/11/20 0600
--- NOTE | 2020-08-11 16:49 | REP ---
INDICATION: CVA. COMPARISON: None. TECHNIQUE: PORTABLE CHEST FINDINGS: LUNGS ARE WELL INFLATED WITHOUT INFILTRATE, EFFUSION, ATELECTASIS OR MASS. CP ANGLES ARE SHARPLY DEFINED. THE HEART, MEDIASTINAL AND HILAR CONTOURS WERE GROSSLY UNREMARKABLE. THE AORTA IS MILDLY TORTUOUS BUT NORMAL FOR AGE. PULMONARY ARTERIES APPEAR GROSSLY SYMMETRIC WITHOUT ACUTE FINDING. SOME MINOR DEGENERATIVE CHANGES IN THE SPINE WITHOUT LEFT VISIBLE FRACTURE OR DESTRUCTIVE BONE LESION. IMPRESSION: NO ACUTE CARDIOPULMONARY CHANGE. <Electronically signed by Sushil Cuevas > 08/11/20 9960
[2020-08-11 17:35] LABS: BASO # 0.1 10^3/uL (0.0-0.2); BASO % 1.1 % (0.0-1.0); EOS # 0.1 10^3/uL (0.0-0.5); EOS % 1.7 % (0.0-3.0); HEMATOCRIT 42.3 % (36.0-47.0); HEMOGLOBIN 13.8 g/dl (12.0-15.5); LYMPH # 2.7 10^3/uL (1.5-5.0); LYMPH % 38.9 % (24.0-44.0); MEAN CORPUSCULAR HEMOGLOBIN 29.8 pg (27.0-33.0); MEAN CORPUSCULAR HGB CONC 32.6 g/dl (32.0-36.5); MEAN CORPUSCULAR VOLUME 91.4 fl (80.0-96.0); MONO # 0.8 10^3/uL (0.0-0.8); MONO % 11.2 % (2.0-8.0); NEUTROPHILS # 3.3 10^3/uL (1.5-8.5); PLATELET COUNT, AUTOMATED 167 10^3/uL (150-450); RED BLOOD COUNT 4.63 10^6/uL (4.00-5.40); WHITE BLOOD COUNT 7.1 10^3/uL (4.0-10.0)
[2020-08-11] MEDS ORDERED: ISOVUE-370 76% 100ML VIAL As Ordered ONE (17:36)
[2020-08-11 18:05] LABS: CK-MB VALUE MASS < 1.0 NG/ML (<3.6); CPK CREATINE PHOSPHOKINASE 50 U/L (26-192); TROPONIN I < 0.02 NG/ML (< 0.10)
[2020-08-11] MEDS ORDERED: LORazepam 2 MG/ML VIAL IV STA (18:22)
--- NOTE | 2020-08-11 18:32 | REPVR ---
PROCEDURE INFORMATION: Exam: CT Angiography Head With Contrast Exam date and time: 08/11/2020 5:48 PM Age: 75 years old Clinical indication: Weakness; Additional info: CVA - nursing interventions must not delay CT TECHNIQUE: Imaging protocol: Computed tomography angiography of the head with intravenous contrast. 3D rendering (Not supervised by radiologist): MIP and/or 3D reconstructed images were created by the technologist. Radiation optimization: All CT scans at this facility use at least one of these dose optimization techniques: automated exposure control; mA and/or kV adjustment per patient size (includes targeted exams where dose is matched to clinical indication); or iterative reconstruction. Contrast material: ISOVUE 370; Contrast volume: 100 ml; Contrast route: INTRAVENOUS (IV); COMPARISON: CT Head without contrast 08/11/2020 4:26 PM FINDINGS: ANTERIOR CIRCULATION: Right internal carotid artery: Unremarkable. Intracranial segment is patent with no significant stenosis. No aneurysm. Right middle cerebral artery: Unremarkable. No occlusion or significant stenosis. No aneurysm. Right anterior cerebral artery: Unremarkable. No occlusion or significant stenosis. No aneurysm. Left internal carotid artery: Unremarkable. Intracranial segment is patent with no significant stenosis. No aneurysm. Left middle cerebral artery: Unremarkable. No occlusion or significant stenosis. No aneurysm. Left anterior cerebral artery: Unremarkable. No occlusion or significant stenosis. No aneurysm. POSTERIOR CIRCULATION: Right vertebral artery: Unremarkable. No occlusion or significant stenosis. No aneurysm. Left vertebral artery: Unremarkable. No occlusion or significant stenosis. No aneurysm. Basilar artery: Unremarkable. No occlusion or significant stenosis. No aneurysm. Right posterior cerebral artery: Unremarkable. No occlusion or significant stenosis. No aneurysm. Left posterior cerebral artery: Unremarkable. No occlusion or significant stenosis. No aneurysm. IMPRESSION: No significant intracranial vascular abnormality identified. Electronically signed by: Amalia Ramírez On 08/11/2020 18:32:15 PM
--- NOTE | 2020-08-11 18:36 | REPVR ---
PROCEDURE INFORMATION: Exam: CT Angiography Neck With Contrast Exam date and time: 08/11/2020 5:48 PM Age: 75 years old Clinical indication: Weakness; Additional info: CVA - nursing interventions must not delay CT TECHNIQUE: Imaging protocol: Computed tomography angiography of the neck with intravenous contrast. 3D rendering (Not supervised by radiologist): MIP and/or 3D reconstructed images were created by the technologist. Radiation optimization: All CT scans at this facility use at least one of these dose optimization techniques: automated exposure control; mA and/or kV adjustment per patient size (includes targeted exams where dose is matched to clinical indication); or iterative reconstruction. Contrast material: ISOVUE 370; Contrast volume: 100 ml; Contrast route: INTRAVENOUS (IV); COMPARISON: No relevant prior studies available. FINDINGS: Right common carotid artery: No stenosis. No dissection or occlusion. Right internal carotid artery: No stenosis of the extracranial segment. No dissection or occlusion. Right external carotid artery: No occlusion or stenosis of the origin. Right vertebral artery: No stenosis. No dissection or occlusion. Left common carotid artery: No stenosis. No dissection or occlusion. Left internal carotid artery: Calcified plaque causes mild less than 50% stenosis of the left proximal ICA. Left external carotid artery: No occlusion or stenosis of the origin. Left vertebral artery: No stenosis. No dissection or occlusion. IMPRESSION: Mild less than 50% stenosis of the left proximal ICA. REFERENCES: NASCET CRITERIA. The degree of internal carotid artery stenosis is based on NASCET criteria. Normal is no stenosis. Mild is less than 50% stenosis. Moderate is 50-69% stenosis. Severe is 70% to 99% stenosis. Total occlusion is no detectable patent lumen. Electronically signed by: Amalia Ramírez On 08/11/2020 18:36:30 PM
[2020-08-11 19:11] LABS: INR 0.91; PROTHROMBIN TIME 12.5 SECONDS (12.5-14.3)
--- NOTE | 2020-08-11 19:18 | ECGEPIP ---
[facility] - ED Test Date: 2020-08-11 Pat Name: EVA PIERCE Department: Room: - Gender: Female Softlines Supervisor: Gregorio NIETO : 1945 Requested By: Gini Medina Order Number: [id number] Reading MD: Gini Medina Measurements Intervals Frannie Rate: 70 P: 66 MT: 176 QRS: 48 QRSD: 74 T: 62 QT: 400 QTc: 432 Interpretive Statements Normal sinus rhythm Nonspecific ST T wave changes No prior ECG for comparison Electronically Signed on 08-11-2020 19:18:26 EDT by Gini Medina
[2020-08-11] MEDS ORDERED: LORazepam 2 MG/ML VIAL As Ordered ONE (19:50)
--- NOTE | 2020-08-11 22:11 | REPVR ---
PROCEDURE INFORMATION: Exam: MR Head Without Contrast Exam date and time: 08/11/2020 9:09 PM Age: 75 years old Clinical indication: Other: HX wkness and pain; Left facial drooip; Additional info: HX lue wkness and pain; Left facial drooip TECHNIQUE: Imaging protocol: MR of the head without contrast. COMPARISON: CT Head without contrast 08/11/2020 4:26 PM FINDINGS: Brain: There is no evidence of an acute ischemic event. Signal changes in the periventricular white matter are nonspecific but statistically most likely reflect chronic microvascular ischemic disease. There is no intra-axial mass identified. There is a 7 x 14 mm extra-axial lesion in the anterolateral aspect of the left posterior cranial fossa, series 501 frame 7, which is nonspecific but likely reflects meningioma. There is no evidence of intracranial hemorrhage. No abnormal extra-axial fluid collections are identified. Cerebral ventricles: The ventricles are normal in size and configuration. Pituitary gland and sella: The pituitary gland and sella are normal. Bones/joints: Unremarkable. Paranasal sinuses: Normal as visualized. No acute sinusitis. Mastoid air cells: Normal as visualized. No mastoid effusion. Orbital cavity: The appearance of the optic globes suggests previous bilateral cataract surgery. Soft tissues: Unremarkable. IMPRESSION: 1. Likely meningioma in the anterolateral aspect of the left posterior cranial fossa. 2. No acute ischemia, hemorrhage, or intra-axial mass identified. 3. Signal changes in the periventricular white matter are nonspecific but statistically most likely reflect chronic microvascular ischemic disease. Electronically signed by: Amalia Ramírez On 08/11/2020 22:11:46 PM
--- NOTE | 2020-08-11 22:22 | REPVR ---
PROCEDURE INFORMATION: Exam: MR Cervical Spine Without Contrast Exam date and time: 08/11/2020 9:09 PM Age: 75 years old Clinical indication: Weakness; Additional info: HX lue wkness and pain; Left facial drooip TECHNIQUE: Imaging protocol: Multiplanar magnetic resonance images of the cervical spine without contrast. COMPARISON: CR SPINE LS W/BENDING 03/10/2017 10:46 AM FINDINGS: Vertebrae: Motion artifact significantly degrades anatomic detail on this study. No anterior wedging deformity. No acute fracture visualized. 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 Motion artifact significantly degrades anatomic detail on this study. Spinal cord: Normal signal. No cord compression. C2-C3: No significant disc disease. No significant spinal stenosis. C3-C4: No significant disc disease. No significant spinal stenosis. C4-C5: Minimal disc bulge with no significant stenosis. C5-C6: Diffuse left eccentric spondylitic disc bulge causes moderate to severe left neural foraminal stenosis. No significant central stenosis at this level. C6-C7: Facet hypertrophy mildly narrows the left neural foramen. C7-T1: [id number] left neural foraminal stenosis due to facet hypertrophy. Other bones/joints: Facet arthropathy is severe at the right upper cervical levels. Vertebral arteries: Expected flow voids in the vertebral arteries. IMPRESSION: Spondylitic changes of the cervical spine, as above, with left eccentric neural foraminal stenosis at the C5-C6, C6-C7 and C7-T1 levels. No significant central canal stenosis. Electronically signed by: Amalia Ramírez On 08/11/2020 22:22:45 PM
--- NOTE | 2020-08-12 03:36 | ED PDOC ---
Post-Departure Follow-Up serial neurological exams largely corroborative of the earlier noted by Dr. Yap my predecessor provider in caring for this patient - in which she was found to have a subtle left sided nasolabial flatenning . Pt relates that her lue is currently pain free and she has 5/5 strength throughout endorsing no sensory deficits therteto nor cerebellar deficits. Of note the patietn is equivocal regarding her subtle nasolabial flattening and is unsure if it is in fact f lattened. She also denies any headache .Nor any other focal neurological deficits. Patient follows up with [facility] and ststes that she is happy to follow up with them regarding her likley chrocni left nasolabial flatteining defect for further cva risk stratification. 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 Neurology consultaiton was appreciated and advising outpatient follow up for further cva risk startification . FATMATA SHELTON MD Aug 12, 2020 03:35
[2020-08-12 04:02] VITALS: BP 133/74
== END 2020-08-12 04:20 | disposition home or self-care (01) ==
LOC: M ED 15:55
DX: D32.9 Benign neoplasm of meninges, unspecified (principal); M54.12 Radiculopathy, cervical region; E11.9 Type 2 diabetes mellitus without complications; I10 Essential (primary) hypertension; G47.30 Sleep apnea, unspecified; Z79.82 Long term (current) use of aspirin; Z79.899 Other long term (current) drug therapy; Z88.0 Allergy status to penicillin
CPT/HCPCS: 36415; 70450; 70496; 70498; 70551; 71045; 72141; 80047; 82550; 82553; 84484; 85025; 85610; 85730; 93005; 93041; 94760; 96374; 99285; J2060; Q9967

== ENCOUNTER → 2020-09-11 | Outpatient (CLI) | payer MEDICARE, MEDICAID ==
[~2020-09-11] MED LIST changes: +ERGO500029; -VITA50005
[2020-09-11 13:56] LABS: BASO # 0.1 10^3/uL (0.0-0.2); BASO % 0.8 % (0.0-1.0); EOS # 0.2 10^3/uL (0.0-0.5); EOS % 1.9 % (0.0-3.0); HEMATOCRIT 43.2 % (36.0-47.0); HEMOGLOBIN 13.9 g/dl (12.0-15.5); LYMPH # 2.9 10^3/uL (1.5-5.0); LYMPH % 35.4 % (24.0-44.0); MEAN CORPUSCULAR HEMOGLOBIN 29.6 pg (27.0-33.0); MEAN CORPUSCULAR HGB CONC 32.2 g/dl (32.0-36.5); MEAN CORPUSCULAR VOLUME 91.9 fl (80.0-96.0); MONO # 0.7 10^3/uL (0.0-0.8); NEUTROPHILS # 4.4 10^3/uL (1.5-8.5); NEUTROPHILS % 53.7 % (36.0-66.0); PLATELET COUNT, AUTOMATED 185 10^3/uL (150-450); WHITE BLOOD COUNT 8.3 10^3/uL (4.0-10.0)
[2020-09-11 14:49] LABS: ALBUMIN 3.7 GM/DL (3.2-5.2); BILIRUBIN,TOTAL 0.4 MG/DL (0.2-1.0); CHOLESTEROL RISK RATIO 2.883 (<5); CREATININE FOR GFR 1.35 MG/DL (0.55-1.30); FREE T4 1.15 NG/DL (0.76-1.46); GLOMERULAR FILTRATION RATE 40.9 (>39); POTASSIUM SERUM 4.1 MEQ/L (3.5-5.1); THYROID STIMULATING HORMONE 0.81 uIU/ML (0.358-3.740); TOTAL PROTEIN 7.1 GM/DL (6.4-8.2)
[2020-09-11 19:06] LABS: HEMOGLOBIN A1c 6.7 %
== END ==
LOC: M LAB 13:03
PROVIDERS: ATTEND Physician Assistant Medical
DX: I10 Essential (primary) hypertension (principal); E78.2 Mixed hyperlipidemia; E11.9 Type 2 diabetes mellitus without complications; R53.83 Other fatigue

== ENCOUNTER → 2020-09-11 | Outpatient (CLI) | payer MEDICARE, MEDICAID ==
[~2020-09-11] MED LIST changes: -ERGO500029; -GABA-283 PO; +GABA-845 PO; +VITA50005
[2020-09-11 19:05] LABS: HEMOGLOBIN A1c 6.7 %
== END ==
LOC: M LAB 13:00
PROVIDERS: ATTEND Internal Medicine Endocrinology, Diabetes & Metabolism
DX: E11.65 Type 2 diabetes mellitus with hyperglycemia (principal)

== ENCOUNTER → 2020-09-29 | Outpatient (CLI) | payer MEDICARE, MEDICAID ==
[~2020-09-29] MED LIST changes: +GABA-283 PO; -GABA-845 PO
--- NOTE | 2020-10-03 01:25 | ECWPNPC ---
PATIENT NAME: EVA PIERCE : 1945 GENDER: FEMALE VISIT DATE: 09/29/2020 DISCHARGE DATE: 09/29/20 1357 VISIT LOCKED DATE TIME: PHYSICIAN: GIOVANI GUZMAN RESOURCE: GIOVANI GUZMAN REASON FOR APPOINTMENT 1. NECK PAIN HISTORY OF PRESENT ILLNESS GENERAL: PLEASANT 75-YEAR-OLD FEMALE REFERRED BY [facility] TO EVALUATE PERSISTENT LEFT ARM PAIN. HAD SEVERE LEFT ARM PAIN 2 MONTHS AGO WITHOUT PRECIPITATING EVENT AND SHE WAS SEEN AT THE EMERGENCY ROOM. SHE WAS DIAGNOSED WITH CERVICAL RADICULOPATHY. SAW [facility] FOR A FOLLOW-UP AFTER THAT VISIT. NERVE CONDUCTION STUDIES WERE DONE OF THE UPPER EXTREMITIES. SHOWED MODERATE TO SEVERE LEFT ULNAR NERVE COMPRESSION. NERVE CONDUCTION STUDY DID NOT REVEAL CERVICAL RADICULOPATHY. PATIENT IS A VAGUE HISTORIAN. COMPLAINING OF RIGHT NECK STIFFNESS. DENIES ANY PAIN IN HER LEFT ARM. COMPLAINING OF CHRONIC RIGHT GREATER THAN LEFT LOW BACK PAIN. DENIES INJURY. DENIES BOWEL OR BLADDER INCONTINENCE. - - -. FALL RISK SCREENING: SCREENING : NO FALLS REPORTED IN THE LAST YEAR , : NO FALLS REPORTED IN THE LAST YEAR. PAIN SCREENING: PATIENT HAS A COMPLAINT OF ACUTE OR CHRONIC PAIN :YES LOCATION OF PAIN:NECK INTENSITY OF PAIN (SCALE OF 1 TO 10):3 WHAT DOES YOUR PAIN FEEL LIKE:SORE STIFFNESS DURATION:CONTINOUS, CONSTANT, ALL DAY, AWAKENS FROM SLEEP PAIN IS INCREASED BY:ACTIVITIES, PROLONGED STANDING PAIN IS DECREASED BY:OTHERS VOLTAREN 1 % GEL NURSING NOTE: - - -. PAIN CENTER INTAKE QUESTIONS: DO YOU HAVE A HISTORY OF MRSA? :NO DO YOU TAKE A BLOOD THINNERS? :NO DO YOU HAVE ANY BLEEDING DISORDERS? :NO ANY NEW NUMBNESS OR WEAKNESS IN YOUR LEGS OR ARMS? :YES RIGHT SHOULDER ANY PACEMAKER,DEFIBRILLATOR, OR DORSAL COLUMN STIMULATOR? :NO DO YOU HAVE ANY RASHES OR OPEN SORES? :NO ARE YOU ALLERGIC TO IV DYE? :NO ARE YOU DIABETIC? :YES ANY NEW PROBLEMS WITH YOUR MEDICATIONS? :NO HAVE YOU RECEIVED A VACCINE IN THE PAST 30 DAYS? :NO DO YOU PLAN TO RECEIVE A VACCINE IN THE NEXT 21 DAYS? :NO DO YOU NEED ANY PRESCRIPTION? :NO DO YOU TAKE ANY IMMUNOSUPPRESSIVE MEDICATIONS? :NO IS THERE A CHANCE YOU COULD BE ? :NO ARE YOU BREAST FEEDING? :NO CURRENT MEDICATIONS TAKING COQ-10 30 MG CAPSULE DIRECTED ORALLY 100MG TAKING VITAMIN D (ERGOCALCIFEROL) 1.25 MG (86179 UT) CAPSULE 1 CAPSULE ORALLY ONCE A DAY TAKING TYLENOL 500MG 1 TAB PRN TAKING VOLTAREN 1 % GEL DIRECTED EXTERNALLY TAKING GABAPENTIN 400 MG CAPSULE 1 CAPSULE ORALLY ONCE A DAY TAKING GLIPIZIDE 10 MG TABLET 1 TABLET ORALLY ONCE A DAY TAKING JANUVIA 100 MG TABLET 1 TABLET ORALLY ONCE A DAY TAKING ASPIR-81 TAKING MAGNESIUM 400 MG CAPSULE DIRECTED ORALLY THREE TIMES WEEKLY TAKING VITAMIN B2 THREE TIMES WEEKLY TAKING MULTIVITAMIN - TABLET 1 TABLET ORALLY ONCE A DAY TAKING ATORVASTATIN CALCIUM 80 MG TABLET 1 TABLET ORALLY ONCE A DAY TAKING QUETIAPINE FUMARATE 50 MG TABLET 1 TABLET AT BEDTIME ORALLY ONCE A DAY TAKING BUSPIRONE HCL 15 MG TABLET 1 TABLET ORALLY ONCE DAILY TAKING LEVOTHYROXINE SODIUM 112 MCG TABLET 1 TABLET IN THE MORNING ON AN EMPTY STOMACH ORALLY ONCE A DAY TAKING BUSPAR 15MG DAILY TAKING LIPITOR 80 MG TABLET 1 TABLET ORALLY ONCE A DAY TAKING SEROQUEL 100 MG TABLET 1 TABLET AT BEDTIME ORALLY ONCE A DAY TAKING TRAZODONE HCL 100 MG TABLET 2 TABS ORALLY ONCE A DAY TAKING XANAX 0.25 MG TABLET 1 TABLET ORALLY TWICE A DAY NOT-TAKING DULCOLAX 5 MG TABLET DELAYED RELEASE 100MG 1 TABLET NEEDED ORALLY ONCE A DAY NOT-TAKING MVC-FLUORIDE NOT-TAKING SYNTHROID 112 MCG TABLET 1 TABLET IN THE MORNING ON AN EMPTY STOMACH ORALLY ONCE A DAY NOT-TAKING LASIX 20 MG TABLET 1 TABLET ORALLY ONCE A DAY, NOTES: NOT SURE OF DOSE NOT-TAKING RIBOFLAVIN 100 MG TABLET 1 TABLET ORALLY ONCE A DAY NOT-TAKING LIPITOR 80 MG TABLET 1 TABLET ORALLY ONCE A DAY NOT-TAKING MULTIVITAL NOT-TAKING DRISDOL 1.25 MG (27974 UT) CAPSULE 1 CAPSULE ORALLY NOT-TAKING DOXYCYCLINE HYCLATE 100 MG CAPSULE 1 CAPSULE ORALLY TWICE A DAY NOT-TAKING DOXYCYCLINE HYCLATE 100 MG TABLET 1 TABLET ORALLY TWICE A DAY NOT-TAKING SERTRALINE HCL 25 MG TABLET 1 TABLET ORALLY ONCE A DAY PAST MEDICAL HISTORY MIGRAINE HIGH CHOLESTEROL ARTHRITIS HYPOTHYROID DM WITH NEUROPATHY ANXIETY DEPRESSION SEES THERAPIST 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 LEFT 2000 COLONSCOPY 2008 NERVE CONDUCTION STUDY 09/06/2020 BLOOD WORK, CT SCAN, MRI 08/11/2020 FAMILY HISTORY FATHER: 59 YRS, OAT CELL CANCER MOTHER: 82 YRS, DM SIBLINGS: ALIVE, BROTHER COPD 2 BROTHER(S) . DENIES FH OF SKIN CANCER OR MELANOMA, FAMILY HISTORY OF HEADACHE,DM, LUNG CANCER, COPD. SOCIAL HISTORY GENERAL: TOBACCO USE ARE YOU A:NONSMOKER NEVER SMOKER LATEX QUESTIONNAIRE LATEX ALLERGY : HAVE YOU EVER DEVELOPED ANY TYPE OF REACTION AFTER HANDLING LATEX PRODUCTS SUCH RUBBER GLOVES, CONDOMS, DIAPHRAGMS, BALLOONS, SOCKS, OR UNDERWEAR?NO LATEX ALLERGY : HAVE YOU EVER DEVELOPED ANY TYPE OF REACTION DURING OR AFTER DENTAL APPOINTMENT, VAGINAL/RECTAL EXAMINATION, SURGICAL PROCEDURE, OR ANY OTHER EXPOSURE?NO LATEX RISK : HAVE YOU EVER HAD ANY DIFFICULTY BREATHING OR HIVES AFTER EATING OR HANDLING ANY FRUITS, OR VEGETABLES; SUCH KIWI, BANANAS, STONE FRUITS, OR CHESTNUTSNO LATEX RISK : DO YOU HAVE A PREVIOUS PERSONAL HISTORY OF MORE THAN NINE SURGERIES, SPINA BIFIDA, OR REPEATED CATHERIZATIONS? NO LATEX RISK : ARE YOU FREQUENTLY EXPOSED TO LATEX PRODUCTS IN YOUR OCCUPATION?NO DATE ASKED : 09/29/2020 ALCOHOL USE: YES, OCCASIONALLY. BMI CARE GOAL FOLLOW-UP ABOVE NORMAL BMI [facility] DI[facility] ALCOHOL SCREENING DID YOU HAVE A DRINK CONTAINING ALCOHOL IN THE PAST YEAR?YES HOW OFTEN DID YOU HAVE SIX OR MORE DRINKS ON ONE OCCASION IN THE PAST YEAR?NEVER (0 POINTS) HOW MANY DRINKS DID YOU HAVE ON A TYPICAL DAY WHEN YOU WERE DRINKING IN THE PAST YEAR?1 OR 2 (0 POINTS) HOW OFTEN DID YOU HAVE A DRINK CONTAINING ALCOHOL IN THE PAST YEAR?MONTHLY OR LESS (1 POINT) POINTS1 INTERPRETATIONNEGATIVE RECREATIONAL DRUG USE DRUG USE?NO CAFFEINE CAFFEINE USE?YES COFFEE EVERY OTHER DAY HIV / HEP-C SCREENING HIV TEST OFFERED TO PATIENT:YES DATE OFFERED:12/08/2018 TEST ACCEPTED:NO HEP-C TEST OFFERED TO PATIENT:YES DATE OFFERED:12/08/2018 REASON:PATIENT DECLINED TEST ACCEPTED:NO REASON:PATIENT DECLINED BROCHURE PROVIDED TO PATIENTNO LANGUAGE LANGUAGES SPOKEN:KHMER LEARNING BARRIERS / SPECIAL NEEDS CHANGE FROM LAST VISIT?NO BARRIERS TO LEARNING?NO HEARING IMPAIRED?NO VISION IMPAIRED?YES :CORRECTIVE LENSES READING GLASSES COGNITIVELY IMPAIRED?NO READINESS TO LEARN?YES LEARNING PREFERENCES?NO LEARNING CAPABILITIES PRESENT?YES EMOTIONAL BARRIERS?YES VERY ANXIUOS SPECIAL DEVICES?YES DENTURES EMAIL CAMPAIGN SPECIALIST NEEDED?NO OCCUPATION: RETIRED. DIET: REGULAR. EXERCISE: WALKING. MARITAL STATUS: .. OTHERS AT HOME: NONE. HOSPITALIZATION/MAJOR DIAGNOSTIC PROCEDURE NO HOSPITALIZATION HISTORY. REVIEW OF SYSTEMS CONSTITUTIONAL: ANY RECENT FEVER NO . CHILLS NO . WEIGHT CHANGE OF UNKNOWN REASONS NO . GASTROENTEROLOGY: NEW UNEXPLAINABLE CHANGES IN BOWEL CONTROL NO . CONSTIPATION NO . GENITOURINARY: ANY NEW CHANGE IN BLADDER CONTROL? NO . NEUROLOGY: NEW ONSET DIZZINESS OR NEUROLOGICAL CHANGES NOT MENTIONED NO . NEW NUMBNESS OR PAIN PATTERNS NOT MENTIONED AND PERTINENT TO TODAY'S VISIT NO . CARDIOLOGY: NEW CHEST PRESSURE NO . PATIENT DENIES NO . RESPIRATORY: UNEXPLAINABLE COUGH NO . NEW SHORTNESS OF BREATH NO . VITAL SIGNS WT 192.6 LBS, HT 64 IN, BMI 33.06 INDEX, BP 119/88 MM HG, HR 85 /MIN, RR 18 /MIN, TEMP 97.4 F, OXYGEN SAT % 97%, SAFE IN ENV? (Y/N) YES, NA INITIALS AW 1254T.EMILY CAMPBELL. EXAMINATION GENERAL EXAMINATION: GENERALNO ACUTE DISTRESS, WELL NOURISHED AND HYDRATED. PSYCHAPPROPRIATE MOOD AND AFFECT . FACE:UNREMARKABLE. NECK:NO LYMPHADENOPATHY, SUPPLE, NO THYROMEGALLY. LUNGS:CLEAR TO AUSCULTATION BILATERALLY, NO WHEEZES, RHONCHI, RALES. HEART:NO MURMURS, REGULAR RATE AND RHYTHM. MUSCULOSKELETAL:NORMAL RANGE OF MOTION. LUMBAR: PALPATION: + FOR PAIN OVER L/S SPINE. + FOR PAIN OVER L/S PARSPINALS. CERVICAL: PALPATION: NEGATIVE FOR PAIN OVER C- SPINE. + FOR PAIN OVER CERVICAL PARSPINALS. ASSESSMENTS CERVICAL PAIN - M54.2 (PRIMARY) LOW BACK PAIN AT MULTIPLE SITES - M54.5 TREATMENT CERVICAL PAIN NOTES: ADVISED PATIENT TO DO HOME STRETCHING EXERCISES TWICE A DAY FOR BOTH HER NECK AND LOWER BACK. WE GAVE HER HANDOUTS THAT DEMONSTRATE THESE EXERCISES. PATIENT WILL CALL US IF PAIN PERSISTS AND SHE WOULD LIKE TO TRY INJECTION THERAPY. PRINTED INFORMATION FOR PATIENT ON LOWER BACK AND NECK STRETCHING EXERCISES IMANI CAMPBELL. PROCEDURE CODES FA211 ESTABILISHED PATIENT [facility] CHARGE DISPOSITION & COMMUNICATION FOLLOW UP PATIENT WILL CALL IF NECESSARY ELECTRONICALLY SIGNED BY DOROTHY JACOBO ON 10/02/2020 AT 03:01 PM EDT DISCLAIMER : THIS IS A VISIT SUMMARY EXTRACTED FROM THE [employer] CHART. IT IS NOT A COPY OF THE [facility] PROGRESS NOTE. MTDD
== END ==
LOC: M PAIN 13:00
PROVIDERS: ATTEND Nurse Practitioner Family
DX: M54.2 Cervicalgia (principal); M54.5 Low back pain; G43.909 Migraine, unspecified, not intractable, without status migrainosus; E78.00 Pure hypercholesterolemia, unspecified; M19.90 Unspecified osteoarthritis, unspecified site; E03.9 Hypothyroidism, unspecified; E11.40 Type 2 diabetes mellitus with diabetic neuropathy, unspecified; F41.9 Anxiety disorder, unspecified; F32.9 Major depressive disorder, single episode, unspecified; G25.81 Restless legs syndrome; N18.30 Chronic kidney disease, stage 3 unspecified; E11.22 Type 2 diabetes mellitus with diabetic chronic kidney disease; Z79.84 Long term (current) use of oral hypoglycemic drugs; Z79.899 Other long term (current) drug therapy; Z79.82 Long term (current) use of aspirin; Z88.0 Allergy status to penicillin; Z88.6 Allergy status to analgesic agent; Z88.8 Allergy status to other drugs, medicaments and biological substances

== ENCOUNTER → 2020-11-27 | Outpatient (REF) | payer MEDICARE, MEDICAID ==
[~2020-11-27] MED LIST changes: +ERGO500029; -VITA50005
== END ==
LOC: M LAB REF 17:14
PROVIDERS: ATTEND Internal Medicine Nephrology
DX: E83.42 Hypomagnesemia (principal)

== ENCOUNTER → 2020-12-27 | Outpatient (CLI) | payer MEDICARE, MEDICAID ==
[~2020-12-27] MED LIST changes: +QUET1TAB17; -QUET25TA3; -QUET50TA3 PO; +QUET50TA4 PO
--- NOTE | 2020-12-27 13:43 | DEXAMM ---
INDICATION: SCR FOR OSTEOPOROSIS. COMPARISON: 03/05/2018. TECHNIQUE: Bone density was measured using dual-energy x-ray absorptiometry (DEXA). FINDINGS: AP SPINE L1-L4 BMD 1.308 g/cm2 Young Adult T-Score 0.9 Age Matched Z-Score 2.6. LT FEMUR, TOTAL BMD 1.154 g/cm2 Young Adult T-Score 1.2 Age Matched Z-Score 2.8. LT NECK BMD 1.024 g/cm2 Young Adult T-Score -0.1 Age Matched Z-Score 1.8. RT FEMUR, TOTAL BMD 1.176 g/cm2 Young Adult T-Score 1.3 Age Matched Z-Score 3.0. RT NECK BMD 1.058 g/cm2 Young Adult T-Score 0.1 Age Matched Z-Score 2.0. IMPRESSION: There is normal bone density of the spine. There is normal bone density of the left hip. There is normal bone density of the right hip. The density of the spine has increased 3.4% since the initial exam on 03/05/2018. The density of the left hip has increased 0.5% since initial exam on 03/05/2018. The density of the right hip has decreased 0.7% since the initial exam on 03/05/2018. FOLLOW-UP: Recommendation for the next bone density exam: 5 years. <Electronically signed by Jose Angel Yap > 12/27/20 [id number]
== END ==
LOC: M WHC 12:50
PROVIDERS: ATTEND Physician Assistant Medical
DX: Z13.820 Encounter for screening for osteoporosis (principal); M85.89 Other specified disorders of bone density and structure, multiple sites

== ENCOUNTER → 2021-02-21 | Outpatient (REF) | payer MEDICARE, MEDICAID | LOC: M LAB REF 17:11 | PROVIDERS: ATTEND Internal Medicine Nephrology | DX: N18.32 Chronic kidney disease, stage 3b (principal); E83.42 Hypomagnesemia ==

== ENCOUNTER → 2021-02-21 | Outpatient (REF) | payer MEDICARE, MEDICAID ==
[2021-02-21 17:41] LABS: BASO # 0.1 10^3/uL (0.0-0.2); BASO % 0.8 % (0.0-1.0); EOS # 0.2 10^3/uL (0.0-0.5); EOS % 1.8 % (0.0-3.0); HEMATOCRIT 41.7 % (36.0-47.0); HEMOGLOBIN 13.9 g/dl (12.0-15.5); LYMPH # 4.6 10^3/uL (1.5-5.0); LYMPH % 40.2 % (24.0-44.0); MEAN CORPUSCULAR HEMOGLOBIN 30.8 pg (27.0-33.0); MEAN CORPUSCULAR HGB CONC 33.3 g/dl (32.0-36.5); MEAN CORPUSCULAR VOLUME 92.5 fl (80.0-96.0); MONO # 0.8 10^3/uL (0.0-0.8); MONO % 6.8 % (2.0-8.0); NEUTROPHILS # 5.8 10^3/uL (1.5-8.5); NEUTROPHILS % 50.1 % (36.0-66.0); PLATELET COUNT, AUTOMATED 207 10^3/uL (150-450); RED BLOOD COUNT 4.51 10^6/uL (4.00-5.40); WHITE BLOOD COUNT 11.5 10^3/uL (4.0-10.0)
[2021-02-21 17:57] LABS: ALBUMIN 3.5 GM/DL (3.2-5.2); BILIRUBIN,TOTAL 0.4 MG/DL (0.2-1.0); CALCIUM LEVEL 9.2 MG/DL (8.8-10.2); CHOLESTEROL RISK RATIO 3.225 (<5); CREATININE FOR GFR 1.59 MG/DL (0.55-1.30); FREE T4 0.8 NG/DL (0.76-1.46); GLOMERULAR FILTRATION RATE 33.9 (>39); POTASSIUM SERUM 3.9 MEQ/L (3.5-5.1); THYROID STIMULATING HORMONE 5.44 uIU/ML (0.358-3.740); TOTAL PROTEIN 6.9 GM/DL (6.4-8.2)
[2021-02-21 18:20] LABS: HEMOGLOBIN A1c 7.1 %
== END ==
LOC: M LAB REF 17:12
PROVIDERS: ATTEND Physician Assistant Medical
DX: R53.83 Other fatigue (principal); I10 Essential (primary) hypertension; E03.9 Hypothyroidism, unspecified; E78.2 Mixed hyperlipidemia; E11.9 Type 2 diabetes mellitus without complications; N18.32 Chronic kidney disease, stage 3b; E83.42 Hypomagnesemia

== ENCOUNTER → 2021-03-23 | Outpatient (CLI) | payer MEDICARE, MEDICAID ==
[~2021-03-23] MED LIST changes: +ISOVUE-300 61% 50ML VIAL As Ordered ONE; +LIDOCAINE 1% MDV 20ML VIAL As Ordered ONE; +methylPREDNISolone SUSP 40MG/ML 1ML VIAL (DEPO MEDROL) As Ordered ONE
--- NOTE | 2021-03-23 16:34 | REP ---
INDICATION: OTH ART CARTILAGE DISORDERS RT HIP. COMPARISON: None. TECHNIQUE: The procedure was performed under the direct supervision of Dr. Yap. The benefits and risks including but not limited to pain infection and bleeding and anaphylaxis were explained to the patient and informed consent was obtained. The right femoral neck was localized using fluoroscopic guidance. The skin was prepped and draped in a sterile fashion. 1% lidocaine was used as a local anesthetic. Using fluoroscopic guidance, and last image hold technology, a 22-gauge spinal needle was inserted and advanced to the femoral neck. 0.5 ml of Isovue-300 was injected to verify placement. Seven ml of a solution containing 5 ml of 1% Xylocaine and 2 mL of Depo-Medrol 40 mg was injected. The needle was then removed. The patient tolerated the procedure well and there were no immediate complications. Less than 6 seconds of fluoro time was utilized for this procedure. FINDINGS: None IMPRESSION: Fluoro guidance for right hip injection. <Electronically signed by Rigoberto Iglesias > 03/23/21 [id number] <Electronically signed by Jose Angel Yap > 03/23/21 [id number]
== END ==
LOC: M RADPRO 13:30
PROVIDERS: ATTEND Physician Assistant Surgical
DX: M25.151 Fistula, right hip (principal)
CPT/HCPCS: 20610; 77002; J1030; Q9967

== ENCOUNTER → 2021-07-06 | Outpatient (CLI) | payer MEDICARE ==
[~2021-07-06] MED LIST changes: -ISOVUE-300 61% 50ML VIAL As Ordered ONE; -LIDOCAINE 1% MDV 20ML VIAL As Ordered ONE; -methylPREDNISolone SUSP 40MG/ML 1ML VIAL (DEPO MEDROL) As Ordered ONE
[2021-07-06 10:39] LABS: BASO # 0.1 10^3/uL (0.0-0.2); BASO % 1.1 % (0.0-1.0); EOS # 1.1 10^3/uL (0.0-0.5); EOS % 10.5 % (0.0-3.0); HEMATOCRIT 41.2 % (36.0-47.0); HEMOGLOBIN 13.5 g/dl (12.0-15.5); LYMPH # 4.4 10^3/uL (1.5-5.0); MEAN CORPUSCULAR HEMOGLOBIN 30.5 pg (27.0-33.0); MEAN CORPUSCULAR HGB CONC 32.8 g/dl (32.0-36.5); MEAN CORPUSCULAR VOLUME 93.2 fl (80.0-96.0); MONO # 0.7 10^3/uL (0.0-0.8); MONO % 6.3 % (2.0-8.0); NEUTROPHILS # 4.2 10^3/uL (1.5-8.5); NEUTROPHILS % 39.7 % (36.0-66.0); PLATELET COUNT, AUTOMATED 199 10^3/uL (150-450); RED BLOOD COUNT 4.42 10^6/uL (4.00-5.40); WHITE BLOOD COUNT 10.6 10^3/uL (4.0-10.0)
[2021-07-06 11:11] LABS: ALBUMIN 3.8 GM/DL (3.2-5.2); BILIRUBIN,TOTAL 0.3 MG/DL (0.2-1.0); CALCIUM LEVEL 9.9 MG/DL (8.8-10.2); CREATININE FOR GFR 1.31 MG/DL (0.55-1.30); FREE T4 0.77 NG/DL (0.76-1.46); GLOMERULAR FILTRATION RATE 42.3 (>39); POTASSIUM SERUM 4.3 MEQ/L (3.5-5.1); THYROID STIMULATING HORMONE 2.9 uIU/ML (0.358-3.740); TOTAL PROTEIN 7.3 GM/DL (6.4-8.2)
[2021-07-06 11:44] LABS: HEMOGLOBIN A1c 8.2 %
== END ==
LOC: M LAB 09:50
PROVIDERS: ATTEND Physician Assistant Medical
DX: R53.83 Other fatigue (principal); E78.2 Mixed hyperlipidemia; I10 Essential (primary) hypertension; E11.9 Type 2 diabetes mellitus without complications

== ENCOUNTER → 2021-12-25 | Outpatient (CLI) | payer MEDICARE, MEDICAID ==
[2021-12-25 12:12] LABS: HEMATOCRIT 41.7 % (36.0-47.0); HEMOGLOBIN 13.5 g/dl (12.0-15.5); MEAN CORPUSCULAR HEMOGLOBIN 29.9 pg (27.0-33.0); MEAN CORPUSCULAR HGB CONC 32.4 g/dl (32.0-36.5); MEAN CORPUSCULAR VOLUME 92.3 fl (80.0-96.0); PLATELET COUNT, AUTOMATED 201 10^3/uL (150-450); RED BLOOD COUNT 4.52 10^6/uL (4.00-5.40); WHITE BLOOD COUNT 9.4 10^3/uL (4.0-10.0)
[2021-12-25 12:58] LABS: ALBUMIN 3.6 GM/DL (3.2-5.2); BILIRUBIN,TOTAL 0.4 MG/DL (0.2-1.0); CALCIUM LEVEL 9.6 MG/DL (8.8-10.2); CHOLESTEROL RISK RATIO 3.208 (<5); CREATININE FOR GFR 1.44 MG/DL (0.55-1.30); GLOMERULAR FILTRATION RATE 37.9 (>39); POTASSIUM SERUM 3.9 MEQ/L (3.5-5.1); THYROID STIMULATING HORMONE 3.21 uIU/ML (0.358-3.740); TOTAL PROTEIN 6.9 GM/DL (6.4-8.2)
[2021-12-25 13:03] LABS: HEMOGLOBIN A1c 8.1 %
== END ==
LOC: M LAB 11:11
PROVIDERS: ATTEND Physician Assistant
DX: E78.5 Hyperlipidemia, unspecified (principal); I10 Essential (primary) hypertension; E03.9 Hypothyroidism, unspecified; E11.9 Type 2 diabetes mellitus without complications

== ENCOUNTER → 2021-12-31 | Outpatient (CLI) | payer MEDICARE, MEDICAID ==
[~2021-12-31] MED LIST changes: +ISOVUE-300 61% 50ML VIAL As Ordered ONE; +LIDOCAINE 1% MDV 20ML VIAL As Ordered ONE; +methylPREDNISolone SUSP 40MG/ML 1ML VIAL (DEPO MEDROL) As Ordered ONE
== END ==
LOC: M RADPRO 10:05
PROVIDERS: ATTEND Physician Assistant Surgical
DX: M24.151 Other articular cartilage disorders, right hip (principal)
CPT/HCPCS: 20610; 76000; J1030; Q9967

== ENCOUNTER 2022-04-06 12:33 | Emergency (ER) | payer MEDICARE, MEDICAID ==
[~2022-04-06 12:33] MED LIST changes: -ISOVUE-300 61% 50ML VIAL As Ordered ONE; -LIDOCAINE 1% MDV 20ML VIAL As Ordered ONE; -methylPREDNISolone SUSP 40MG/ML 1ML VIAL (DEPO MEDROL) As Ordered ONE
[2022-04-06] MEDS ORDERED: TRAZ-252 PO (13:29)
[2022-04-06] MEDS ORDERED: GABA-282 PO (13:29)
[2022-04-06 14:23] LABS: BASO # 0.1 10^3/uL (0.0-0.2); BASO % 0.8 % (0.0-1.0); EOS # 0.2 10^3/uL (0.0-0.5); EOS % 3.2 % (0.0-3.0); HEMATOCRIT 41.3 % (36.0-47.0); HEMOGLOBIN 13.6 g/dl (12.0-15.5); LYMPH # 2.8 10^3/uL (1.5-5.0); LYMPH % 38.1 % (24.0-44.0); MEAN CORPUSCULAR HEMOGLOBIN 30.3 pg (27.0-33.0); MEAN CORPUSCULAR HGB CONC 32.9 g/dl (32.0-36.5); MONO # 0.6 10^3/uL (0.0-0.8); MONO % 7.6 % (2.0-8.0); NEUTROPHILS # 3.6 10^3/uL (1.5-8.5); NEUTROPHILS % 50.2 % (36.0-66.0); PLATELET COUNT, AUTOMATED 177 10^3/uL (150-450); RED BLOOD COUNT 4.49 10^6/uL (4.00-5.40); WHITE BLOOD COUNT 7.2 10^3/uL (4.0-10.0)
[2022-04-06 15:11] LABS: CALCIUM LEVEL 8.1 MG/DL (8.3-10.6); CREATININE FOR GFR 1.1 MG/DL (0.55-1.30); GLOMERULAR FILTRATION RATE 51.7 (>39); THYROID STIMULATING HORMONE 2.11 uIU/ML (0.55-4.78)
[2022-04-06 16:41] VITALS: BP 143/86
== END 2022-04-06 17:00 | disposition home or self-care (01) ==
LOC: M ED 12:33 → EDBD 12:33 → M ED 17:00
DX: J09.X2 Influenza due to identified novel influenza A virus with other respiratory manifestations (principal); S09.90XA Unspecified injury of head, initial encounter; M47.892 Other spondylosis, cervical region; E11.9 Type 2 diabetes mellitus without complications; I10 Essential (primary) hypertension; G47.33 Obstructive sleep apnea (adult) (pediatric); F41.9 Anxiety disorder, unspecified; F32.9 Major depressive disorder, single episode, unspecified; Z79.890 Hormone replacement therapy; Z79.84 Long term (current) use of oral hypoglycemic drugs; Z79.899 Other long term (current) drug therapy; Z88.0 Allergy status to penicillin

== ENCOUNTER → 2022-05-31 | Outpatient (CLI) | payer MEDICARE, MEDICAID ==
[~2022-05-31] MED LIST changes: +GABA-282 PO; +TRAZ-252 PO
[2022-05-31 13:45] LABS: CREATININE FOR GFR 1.37 MG/DL (0.55-1.30)
== END ==
LOC: M LAB 12:40
PROVIDERS: ATTEND Neurological Surgery
DX: D32.9 Benign neoplasm of meninges, unspecified (principal)

== ENCOUNTER → 2022-08-30 | Outpatient (CLI) | payer MEDICARE, MEDICAID ==
[2022-08-30 14:13] LABS: BASO # 0.1 10^3/uL (0.0-0.2); BASO % 1.1 % (0.0-1.0); EOS # 0.2 10^3/uL (0.0-0.5); EOS % 2.6 % (0.0-3.0); HEMATOCRIT 41.8 % (36.0-47.0); HEMOGLOBIN 13.6 g/dl (12.0-15.5); LYMPH # 3.7 10^3/uL (1.5-5.0); MEAN CORPUSCULAR HEMOGLOBIN 29.8 pg (27.0-33.0); MEAN CORPUSCULAR HGB CONC 32.5 g/dl (32.0-36.5); MEAN CORPUSCULAR VOLUME 91.7 fl (80.0-96.0); MONO # 0.6 10^3/uL (0.0-0.8); MONO % 6.4 % (2.0-8.0); NEUTROPHILS # 4.4 10^3/uL (1.5-8.5); NEUTROPHILS % 48.6 % (36.0-66.0); PLATELET COUNT, AUTOMATED 214 10^3/uL (150-450); RED BLOOD COUNT 4.56 10^6/uL (4.00-5.40); WHITE BLOOD COUNT 9.1 10^3/uL (4.0-10.0)
[2022-08-30 14:23] LABS: HEMOGLOBIN A1c 8.7 % (4.0-6.0)
[2022-08-30 14:39] LABS: ALBUMIN 3.8 G/DL (3.2-5.2); BILIRUBIN,TOTAL 0.5 MG/DL (0.3-1.2); CALCIUM LEVEL 10.1 MG/DL (8.3-10.6); CHOLESTEROL RISK RATIO 2.99 (<5); CREATININE FOR GFR 1.29 MG/DL (0.55-1.30); GLOMERULAR FILTRATION RATE 42.9 (>39); HDL CHOLESTEROL 67.2 MG/DL (>40); LDL CHOLESTEROL 107.6 MG/DL (<100); NON-HDL-C 133.8 MG/DL; POTASSIUM SERUM 3.9 MMOL/L (3.5-5.1); TOTAL PROTEIN 6.8 G/DL (5.7-8.2)
== END ==
LOC: M LAB 13:19
PROVIDERS: ATTEND Physician Assistant
DX: I10 Essential (primary) hypertension (principal); E78.5 Hyperlipidemia, unspecified; E11.9 Type 2 diabetes mellitus without complications; E55.9 Vitamin D deficiency, unspecified

== ENCOUNTER → 2022-10-25 | Outpatient (REF) | payer MEDICARE, MEDICAID ==
[2022-10-25 17:59] LABS: CREATININE, URINE 205.4 MG/DL; MAU/CREAT RATIO 1.4 MCG/MG (0.0-30.0)
== END ==
LOC: M LAB REF 17:01
PROVIDERS: ATTEND Nurse Practitioner Family
DX: E11.22 Type 2 diabetes mellitus with diabetic chronic kidney disease (principal)

== ENCOUNTER → 2022-12-11 | Outpatient (CLI) | payer MEDICARE, MEDICAID ==
[~2022-12-11] MED LIST changes: -GABA-283 PO; +GABA-284 PO
[2022-12-11 15:07] LABS: BASO # 0.1 10^3/uL (0.0-0.2); BASO % 0.9 % (0.0-1.0); EOS # 0.2 10^3/uL (0.0-0.5); HEMATOCRIT 40.3 % (36.0-47.0); HEMOGLOBIN 13.3 g/dl (12.0-15.5); LYMPH # 4.1 10^3/uL (1.5-5.0); LYMPH % 38.9 % (24.0-44.0); MEAN CORPUSCULAR HEMOGLOBIN 30.7 pg (27.0-33.0); MEAN CORPUSCULAR VOLUME 93.1 fl (80.0-96.0); MONO # 0.7 10^3/uL (0.0-0.8); MONO % 6.5 % (2.0-8.0); NEUTROPHILS # 5.4 10^3/uL (1.5-8.5); NEUTROPHILS % 51.3 % (36.0-66.0); PLATELET COUNT, AUTOMATED 175 10^3/uL (150-450); RED BLOOD COUNT 4.33 10^6/uL (4.00-5.40); WHITE BLOOD COUNT 10.5 10^3/uL (4.0-10.0)
[2022-12-11 15:38] LABS: TOTAL 25(OH) VITAMIN D 36.5 NG/ML (20.0-100.0)
[2022-12-11 15:39] LABS: THYROID STIMULATING HORMONE 6.348 uIU/ML (0.55-4.78)
[2022-12-11 15:43] LABS: FREE T4 0.91 NG/DL (0.89-1.76); VITAMIN B12 LEVEL 320 PG/ML (211-911)
[2022-12-11 15:44] LABS: FOLATE > 24.0 NG/ML (>5.4)
[2022-12-11 16:20] LABS: ALBUMIN 3.6 G/DL (3.2-5.2); ALKALINE PHOSPHATASE 97 U/L (46-116); ALT/SGPT 34 U/L (7.0-40); AST/SGOT 20 U/L (<34); BILIRUBIN,TOTAL 0.5 MG/DL (0.3-1.2); BLOOD UREA NITROGEN 21 MG/DL (9-23); CALCIUM LEVEL 9.5 MG/DL (8.3-10.6); CARBON DIOXIDE LEVEL 28 MMOL/L (20-31); CHLORIDE LEVEL 103 MMOL/L (98-107); CHOLESTEROL LEVEL 201 MG/DL (<200); CHOLESTEROL RISK RATIO 3.32 (<5); CREATININE FOR GFR 1.13 MG/DL (0.55-1.30); GLUCOSE, FASTING 228 MG/DL (74-106); HDL CHOLESTEROL 60.5 MG/DL (>40); LDL CHOLESTEROL 105.3 MG/DL (<100); MAGNESIUM LEVEL 1.5 MG/DL (1.8-2.4); NON-HDL-C 140.5 MG/DL; POTASSIUM SERUM 4.2 MMOL/L (3.5-5.1); SODIUM LEVEL 139 MMOL/L (136-145); TOTAL PROTEIN 6.6 G/DL (5.7-8.2); TRIGLYCERIDES LEVEL 176 MG/DL (<150)
== END ==
LOC: M PLALAB 10:19
PROVIDERS: ATTEND Nurse Practitioner Adult Health
DX: E78.5 Hyperlipidemia, unspecified (principal); N18.30 Chronic kidney disease, stage 3 unspecified; I12.9 Hypertensive chronic kidney disease with stage 1 through stage 4 chronic kidney disease, or unspecified chronic kidney disease; E11.9 Type 2 diabetes mellitus without complications; E03.9 Hypothyroidism, unspecified; E55.9 Vitamin D deficiency, unspecified; Z79.899 Other long term (current) drug therapy

== ENCOUNTER 2023-03-05 10:39 | Emergency (ER) | payer MEDICARE, MEDICAID ==
[2023-03-05] MEDS ORDERED: CIPR500T39 (10:51)
[2023-03-05] MEDS ORDERED: DIPH-429 (10:51)
[2023-03-05 12:03] LABS: BASO # 0.1 10^3/uL (0.0-0.2); BASO % 0.9 % (0.0-1.0); EOS # 0.1 10^3/uL (0.0-0.5); EOS % 1.4 % (0.0-3.0); HEMATOCRIT 41.4 % (36.0-47.0); HEMOGLOBIN 13.6 g/dl (12.0-15.5); LYMPH # 2.3 10^3/uL (1.5-5.0); MEAN CORPUSCULAR HEMOGLOBIN 30.2 pg (27.0-33.0); MEAN CORPUSCULAR HGB CONC 32.9 g/dl (32.0-36.5); MONO # 0.7 10^3/uL (0.0-0.8); MONO % 9.5 % (2.0-8.0); NEUTROPHILS # 4.5 10^3/uL (1.5-8.5); NEUTROPHILS % 57.8 % (36.0-66.0); PLATELET COUNT, AUTOMATED 180 10^3/uL (150-450); WHITE BLOOD COUNT 7.8 10^3/uL (4.0-10.0)
[2023-03-05 12:22] LABS: ALBUMIN 3.7 G/DL (3.2-5.2); BILIRUBIN,DIRECT 0.1 MG/DL (<0.4); BILIRUBIN,TOTAL 0.6 MG/DL (0.3-1.2); CALCIUM LEVEL 9.2 MG/DL (8.3-10.6); CREATININE FOR GFR 1.07 MG/DL (0.55-1.30); GLOMERULAR FILTRATION RATE 53.2 (>39); POTASSIUM SERUM 6.4 MMOL/L (3.5-5.1); TOTAL PROTEIN 6.9 G/DL (5.7-8.2)
[2023-03-05] MEDS ORDERED: KETOROLAC 30 MG/ML 1ML VIAL IV ONE (13:15)
[2023-03-05] MEDS ORDERED: NS 1,000 ML IV ONE (13:15)
[2023-03-05] MEDS ORDERED: ISOVUE-370 76% 100ML VIAL As Ordered ONE (13:28)
[2023-03-05] MEDS ORDERED: DICY-61 PO (15:06)
[2023-03-05] MEDS ORDERED: MIRA3350 PO (15:06)
[2023-03-05 15:30] VITALS: BP 167/74; TEMP 98.3; O2SAT 98
== END 2023-03-05 16:06 | disposition home or self-care (01) ==
LOC: M ED 10:39 → EDBD 10:39 → M ED 16:06
DX: K59.00 Constipation, unspecified (principal); I10 Essential (primary) hypertension; E03.9 Hypothyroidism, unspecified; E11.9 Type 2 diabetes mellitus without complications; G47.33 Obstructive sleep apnea (adult) (pediatric); Z79.84 Long term (current) use of oral hypoglycemic drugs; Z79.899 Other long term (current) drug therapy; Z88.0 Allergy status to penicillin
CPT/HCPCS: 74177; 80048; 80076; 81001; 83605; 83690; 84132; 85025; 85730; 87040; 93005; 93041; 96361; 96374; 99285; J1885; Q9967

== ENCOUNTER → 2023-04-02 | Outpatient (CLI) | payer MEDICARE, MEDICAID ==
[~2023-04-02] MED LIST changes: +CIPR500T39; +DICY-61 PO; +DIPH-429; +MIRA3350 PO
[2023-04-02 09:16] LABS: BASO # 0.1 10^3/uL (0.0-0.2); BASO % 0.8 % (0.0-1.0); EOS # 0.2 10^3/uL (0.0-0.5); EOS % 1.6 % (0.0-3.0); HEMATOCRIT 43.1 % (36.0-47.0); HEMOGLOBIN 14.2 g/dl (12.0-15.5); LYMPH # 3.2 10^3/uL (1.5-5.0); MEAN CORPUSCULAR HEMOGLOBIN 30.9 pg (27.0-33.0); MEAN CORPUSCULAR HGB CONC 32.9 g/dl (32.0-36.5); MEAN CORPUSCULAR VOLUME 93.7 fl (80.0-96.0); MONO # 0.8 10^3/uL (0.0-0.8); MONO % 8.1 % (2.0-8.0); NEUTROPHILS # 5.9 10^3/uL (1.5-8.5); NEUTROPHILS % 58.2 % (36.0-66.0); PLATELET COUNT, AUTOMATED 172 10^3/uL (150-450); WHITE BLOOD COUNT 10.2 10^3/uL (4.0-10.0)
[2023-04-02 09:38] LABS: ALBUMIN 3.9 G/DL (3.2-5.2); BILIRUBIN,TOTAL 0.5 MG/DL (0.3-1.2); CALCIUM LEVEL 10.2 MG/DL (8.3-10.6); CHOLESTEROL RISK RATIO 3.39 (<5); CREATININE FOR GFR 1.24 MG/DL (0.55-1.30); GLOMERULAR FILTRATION RATE 44.9 (>39); TOTAL PROTEIN 6.9 G/DL (5.7-8.2)
[2023-04-02 09:40] LABS: THYROID STIMULATING HORMONE 0.104 uIU/ML (0.55-4.78); THYROXINE (T4) 11.1 UG/DL (4.5-10.9)
[2023-04-02 09:41] LABS: HEMOGLOBIN A1c 7.7 % (4.0-6.0)
== END ==
LOC: M LAB 08:31
PROVIDERS: ATTEND Nurse Practitioner Adult Health
DX: I10 Essential (primary) hypertension (principal); E78.5 Hyperlipidemia, unspecified; E03.9 Hypothyroidism, unspecified; E11.9 Type 2 diabetes mellitus without complications

== ENCOUNTER → 2023-06-09 | Outpatient (CLI) | payer MEDICARE, MEDICAID ==
[~2023-06-09] MED LIST changes: +ISOVUE-300 61% 100ML VIAL As Ordered ONE; +LIDOCAINE 1% MDV 20ML VIAL As Ordered ONE; +methylPREDNISolone SUSP 40MG/ML 1ML VIAL (DEPO MEDROL) As Ordered ONE
== END ==
LOC: M RAD 13:55
PROVIDERS: ATTEND Physician Assistant Surgical
DX: M16.0 Bilateral primary osteoarthritis of hip (principal)
CPT/HCPCS: 20610; 77002; J1030; Q9967

== ENCOUNTER 2023-08-06 07:55 | Emergency (ER) | payer MEDICARE, MEDICAID ==
[~2023-08-06] VITALS: Ht 162.6 cm; Wt 80.8 kg
[~2023-08-06 07:55] MED LIST changes: -ISOVUE-300 61% 100ML VIAL As Ordered ONE; -LIDOCAINE 1% MDV 20ML VIAL As Ordered ONE; -RISP-7; +RISP0.5T82; -methylPREDNISolone SUSP 40MG/ML 1ML VIAL (DEPO MEDROL) As Ordered ONE
[2023-08-06] MEDS ORDERED: BUSP10TA (10:29)
[2023-08-06] MEDS ORDERED: CO Q10CA PO (10:30)
[2023-08-06] MEDS ORDERED: [UNRECOGNIZED DRUG - CODE] PO (10:30)
[2023-08-06] MEDS ORDERED: OCUVTAB4 PO (10:30)
[2023-08-06] MEDS ORDERED: FLON27.5 NARES (10:41)
[2023-08-06] MEDS ORDERED: AMOX875T2 PO (10:41)
[2023-08-06 10:54] VITALS: BP 148/66; TEMP 96.4; O2SAT 100
== END 2023-08-06 11:19 | disposition home or self-care (01) ==
LOC: M ED 07:55
DX: H66.41 Suppurative otitis media, unspecified, right ear (principal); H61.21 Impacted cerumen, right ear; Z88.0 Allergy status to penicillin; Z79.1 Long term (current) use of non-steroidal anti-inflammatories (NSAID); Z79.899 Other long term (current) drug therapy; Z79.84 Long term (current) use of oral hypoglycemic drugs

== ENCOUNTER → 2023-10-13 | Outpatient (CLI) | payer MEDICARE, MEDICAID ==
[~2023-10-13] MED LIST changes: +AMOX875T2 PO; +BUSP10TA; +CO Q10CA PO; +FLON27.5 NARES; +OCUVTAB4 PO; +[UNRECOGNIZED DRUG - CODE] PO
[2023-10-13 12:53] LABS: HEMOGLOBIN 14.1 g/dl (12.0-15.5); MEAN CORPUSCULAR HEMOGLOBIN 30.6 pg (27.0-33.0); MEAN CORPUSCULAR HGB CONC 33.6 g/dl (32.0-36.5); MEAN CORPUSCULAR VOLUME 91.1 fl (80.0-96.0); PLATELET COUNT, AUTOMATED 172 10^3/uL (150-450); RED BLOOD COUNT 4.61 10^6/uL (4.00-5.40); WHITE BLOOD COUNT 9.2 10^3/uL (4.0-10.0)
[2023-10-13 13:05] LABS: ALBUMIN 3.7 G/DL (3.2-5.2); BILIRUBIN,TOTAL 0.7 MG/DL (0.3-1.2); CHOLESTEROL RISK RATIO 3.26 (<5); CREATININE FOR GFR 1.16 MG/DL (0.55-1.30); GLOMERULAR FILTRATION RATE 48.4 (>39); HDL CHOLESTEROL 53.3 MG/DL (>40); LDL CHOLESTEROL 87.5 MG/DL (<100); NON-HDL-C 120.7 MG/DL; POTASSIUM SERUM 4.3 MMOL/L (3.5-5.1); TOTAL PROTEIN 6.9 G/DL (5.7-8.2)
[2023-10-13 13:07] LABS: FREE T4 0.99 NG/DL (0.89-1.76); THYROID STIMULATING HORMONE 9.333 uIU/ML (0.55-4.78)
== END ==
LOC: M LAB 11:26
PROVIDERS: ATTEND Nurse Practitioner Adult Health
DX: E11.9 Type 2 diabetes mellitus without complications (principal); E03.9 Hypothyroidism, unspecified; E78.5 Hyperlipidemia, unspecified; I10 Essential (primary) hypertension

== ENCOUNTER → 2024-01-06 | Outpatient (CLI) | payer MEDICARE, MEDICAID ==
[2024-01-06 09:12] LABS: HEMATOCRIT 42.3 % (36.0-47.0); HEMOGLOBIN 13.9 g/dl (12.0-15.5); MEAN CORPUSCULAR HEMOGLOBIN 30.3 pg (27.0-33.0); MEAN CORPUSCULAR HGB CONC 32.9 g/dl (32.0-36.5); MEAN CORPUSCULAR VOLUME 92.4 fl (80.0-96.0); PLATELET COUNT, AUTOMATED 170 10^3/uL (150-450); RED BLOOD COUNT 4.58 10^6/uL (4.00-5.40); WHITE BLOOD COUNT 9.5 10^3/uL (4.0-10.0)
[2024-01-06 09:39] LABS: HEMOGLOBIN A1c 8.8 % (4.0-6.0)
[2024-01-06 09:40] LABS: FREE T4 1.16 NG/DL (0.89-1.76)
[2024-01-06 09:41] LABS: ALBUMIN 3.6 G/DL (3.2-5.2); BILIRUBIN,TOTAL 0.7 MG/DL (0.3-1.2); CALCIUM LEVEL 9.8 MG/DL (8.3-10.6); CHOLESTEROL RISK RATIO 2.87 (<5); CREATININE FOR GFR 1.37 MG/DL (0.55-1.30); GLOMERULAR FILTRATION RATE 39.9 (>39); HDL CHOLESTEROL 54.7 MG/DL (>40); LDL CHOLESTEROL 78.5 MG/DL (<100); NON-HDL-C 102.3 MG/DL; POTASSIUM SERUM 4.5 MMOL/L (3.5-5.1); THYROID STIMULATING HORMONE 2.452 uIU/ML (0.55-4.78); TOTAL PROTEIN 6.7 G/DL (5.7-8.2)
== END ==
LOC: M LAB 08:27
PROVIDERS: ATTEND Nurse Practitioner Adult Health
DX: E03.9 Hypothyroidism, unspecified (principal); E11.9 Type 2 diabetes mellitus without complications; N18.30 Chronic kidney disease, stage 3 unspecified; E78.5 Hyperlipidemia, unspecified

== ENCOUNTER → 2024-03-19 | Outpatient (CLI) | payer MEDICARE, MEDICAID ==
[~2024-03-19] MED LIST changes: +GABA-1172 PO; -GABA-282 PO; +GLIP10TA15; -GLIP10TA6
== END ==
LOC: M WHC 08:39
PROVIDERS: ATTEND Nurse Practitioner Family
DX: Z12.31 Encounter for screening mammogram for malignant neoplasm of breast (principal); Z13.820 Encounter for screening for osteoporosis; R92.313 Mammographic fatty tissue density, bilateral breasts; Z78.0 Asymptomatic menopausal state

== ENCOUNTER → 2024-03-19 | Outpatient (REF) | payer MEDICARE, MEDICAID | LOC: M SFHCWAGY 14:38 | PROVIDERS: ATTEND Nurse Practitioner Family | DX: Z12.4 Encounter for screening for malignant neoplasm of cervix (principal) | CPT/HCPCS: 87624; G0123 ==

== ENCOUNTER → 2024-07-09 | Outpatient (CLI) | payer MEDICARE, MEDICAID ==
[2024-07-09 09:56] LABS: HEMATOCRIT 42.1 % (36.0-47.0); HEMOGLOBIN 13.8 g/dl (12.0-15.5); MEAN CORPUSCULAR HEMOGLOBIN 29.8 pg (27.0-33.0); MEAN CORPUSCULAR HGB CONC 32.8 g/dl (32.0-36.5); MEAN CORPUSCULAR VOLUME 90.9 fl (80.0-96.0); PLATELET COUNT, AUTOMATED 175 10^3/uL (150-450); RED BLOOD COUNT 4.63 10^6/uL (4.00-5.40)
[2024-07-09 10:27] LABS: ALBUMIN 3.7 G/DL (3.2-5.2); BILIRUBIN,TOTAL 0.6 MG/DL (0.3-1.2); CALCIUM LEVEL 9.6 MG/DL (8.3-10.6); CHOLESTEROL RISK RATIO 2.65 (<5); CREATININE FOR GFR 1.21 MG/DL (0.55-1.30); GLOMERULAR FILTRATION RATE 45.9 (>39); HDL CHOLESTEROL 58.4 MG/DL (>40); NON-HDL-C 96.6 MG/DL; POTASSIUM SERUM 4.2 MMOL/L (3.5-5.1); TOTAL PROTEIN 6.8 G/DL (5.7-8.2)
[2024-07-09 10:29] LABS: FREE T4 1.41 NG/DL (0.89-1.76); THYROID STIMULATING HORMONE 5.207 uIU/ML (0.55-4.78)
[2024-07-09 10:39] LABS: HEMOGLOBIN A1c 13.5 % (4.0-6.0)
== END ==
LOC: M LAB 09:08
DX: E03.9 Hypothyroidism, unspecified (principal)

== ENCOUNTER → 2025-01-14 | Outpatient (CLI) | payer MEDICARE, MEDICAID ==
[~2025-01-14] MED LIST changes: +GLIP-318 PO; -GLIP5TAB20 PO
[2025-01-14 08:16] LABS: PLATELET COUNT, AUTOMATED 213 10^3/uL (150-450)
[2025-01-14 08:20] LABS: ESTIMATED AVERAGE GLUCOSE 278.0 MG/DL (60-110)
[2025-01-14 08:36] LABS: ALT/SGPT 36.0 U/L (7.0-40); AST/SGOT 24.0 U/L (<34); CALCIUM LEVEL 10.9 MG/DL (8.3-10.6); CARBON DIOXIDE LEVEL 28.0 MMOL/L (20-31); CHLORIDE LEVEL 98.0 MMOL/L (98-107); CHOLESTEROL LEVEL 213.0 MG/DL (<200); CHOLESTEROL RISK RATIO 3.1 (<5); CREATININE FOR GFR 1.5 MG/DL (0.55-1.30); GLOMERULAR FILTRATION RATE 35.7 (>39); LDL CHOLESTEROL 112.7 MG/DL (<100); NON-HDL-C 144.5 MG/DL; POTASSIUM SERUM 4.4 MMOL/L (3.5-5.1); SODIUM LEVEL 138.0 MMOL/L (136-145); TRIGLYCERIDES LEVEL 159.0 MG/DL (<150)
[2025-01-14 08:38] LABS: FREE T4 1.25 NG/DL (0.89-1.76)
== END ==
LOC: M LAB 07:32
DX: E03.9 Hypothyroidism, unspecified (principal); E11.9 Type 2 diabetes mellitus without complications; N18.30 Chronic kidney disease, stage 3 unspecified; E78.5 Hyperlipidemia, unspecified